=== PATIENT | male | born 1985 | race African-American/Black ===

== ENCOUNTER 2018-02-16 17:22 | Emergency (ER) | payer MEDICARE, MEDICAID ==
[~2018-02-16] VITALS: Ht 165.1 cm; Wt 95.3 kg
[~2018-02-16 17:22] MED LIST: ALBUTEROL2.5 MG/31 INH; CALCITROL; CLONIDINE; CLONIDINE HCL0.3 M2; DOXYCYCLINE 10100 M1 PO; EPOGEN; FOSRENOL500 MG; NORCO 5-325 TA1 EACH PO; NORVASC; PHOSLYRA667 MG/5 M; PREDNISONE 20 M20 M1 PO; ZESTRIL; ZPAK PO
[2018-02-16 17:48] VITALS: BP 167/110
== END 2018-02-16 17:49 | disposition home or self-care (01) ==
LOC: M.ERS 17:22
DX: Z71.1 Person with feared health complaint in whom no diagnosis is made (principal); I10 Essential (primary) hypertension

== ENCOUNTER 2018-05-29 15:36 | Inpatient (IN) | payer MEDICARE, MEDICAID ==
[2018-05-29] VITALS (20 sets, daily range): BP systolic 108–143; BP diastolic 63–97
[~2018-05-29] VITALS: Ht 172.7 cm; Wt 93.0 kg
[~2018-05-29 15:36] MED LIST changes: -CALCITROL; +CALCITROL PO
[2018-05-29 16:03] LABS: ANION GAP 20 mmol/L (7-16); BUN 122 mg/dL (7-18); CALCIUM 9.6 mg/dL (8.5-10.1); CHLORIDE 97 mmol/L (98-107); CO2 19 mmol/L (21-32); CREATININE 16.6 mg/dL (0.6-1.3); GLUCOSE 98 mg/dL (70-99); SODIUM 136 mmol/L (136-145)
[2018-05-29 16:04] LABS: APTT 32.6 Seconds (25.0-31.3); INR 1.4
[2018-05-29 16:08] LABS: POTASSIUM 9.6 mmol/L (3.5-5.1)
[2018-05-29 16:14] LABS: ABSOLUTE BASOPHILS 0.1 thou/uL (0.0-0.2); ABSOLUTE EOSINOPHILS 0.6 thou/uL (0.0-0.7); ABSOLUTE LYMPHOCYTES 2.9 thou/uL (0.8-5.3); ABSOLUTE MONOCYTES 1.1 thou/uL (0.0-1.2); ALBUMIN 2.2 g/dL (3.4-5.0); ALKALINE PHOSPHATASE 711 U/L (46-116); EOSINOPHILS 5.5 %; HEMATOCRIT 27.5 % (42.0-52.0); HEMOGLOBIN 8.4 gm/dL (14.0-18.0); LYMPHOCYTES 24.8 %; MCH 26.1 pg (26.0-34.0); MCHC 30.6 g/dL (28.0-37.0); MCV 85.3 fL (80.0-100.0); MONOCYTES 9.4 %; MPV 8.4 fl. (7.2-11.1); NT-PRO BRAIN NAT PEPTIDE > 35000 pg/mL (<300); NUCLEATED RBCS 0 /100WBC; PLATELET COUNT* 424 thou/uL (150-400); POLYS 59.3 %; RBC 3.22 mil/uL (4.50-6.00); SGOT 30 U/L (15-37); SGPT 8 U/L (30-65); TOTAL BILIRUBIN 0.7 mg/dL (<0.1-1.0); TOTAL PROTEIN 8.2 g/dL (6.4-8.2); TROPONIN-I LEVEL <0.06 ng/mL (<0.06); WBC 11.7 thou/uL (4.0-11.0)
--- NOTE | 2018-05-29 16:15 | NUR ---
CALLED PT'S BROTHER SOLE AT [phone] PER PT'S REQUEST.
[2018-05-30] VITALS (28 sets, daily range): BP systolic 88–140; BP diastolic 50–85
--- NOTE | 2018-05-30 05:28 | NUR ---
OXYCODONE PULLED FROM PYXIS BY PRECEPTOR YUNIOR HUIZAR AND ADMINISTERED BY THIS RN.
[2018-05-30 05:34] LABS: ABSOLUTE BASOPHILS 0.2 thou/uL (0.0-0.2); ABSOLUTE EOSINOPHILS 0.5 thou/uL (0.0-0.7); ABSOLUTE LYMPHOCYTES 0.8 thou/uL (0.8-5.3); ABSOLUTE MONOCYTES 0.9 thou/uL (0.0-1.2); ABSOLUTE NEUTROPHILS 5.5 thou/uL (1.6-8.1); BASOPHILS 2.3 %; EOSINOPHILS 5.9 %; HEMATOCRIT 20.4 % (42.0-52.0); LYMPHOCYTES 10.4 %; MCV 81.9 fL (80.0-100.0); MONOCYTES 11.5 %; MPV 7.8 fl. (7.2-11.1); NUCLEATED RBCS 0 /100WBC; POLYS 69.9 %; RBC 2.49 mil/uL (4.50-6.00); RDW-CV 16.4 % (10.5-14.5); WBC 7.9 thou/uL (4.0-11.0)
[2018-05-30 05:35] LABS: PLATELET COUNT* 315 thou/uL (150-400)
[2018-05-30 05:36] LABS: HEMOGLOBIN 6.7 gm/dL (14.0-18.0)
[2018-05-30 05:54] LABS: TROPONIN-I LEVEL 0.06 ng/mL (<0.06)
[2018-05-30 05:57] LABS: CALCIUM 7.6 mg/dL (8.5-10.1); CREATININE 9.7 mg/dL (0.6-1.3); POTASSIUM 5.7 mmol/L (3.5-5.1)
--- NOTE | 2018-05-30 11:22 | NUR ---
PT TRANSFERED TO ROOM 314. REPORT TO YUNIOR POON. PT TAKEN PER BED WITH ALL BELONGINGS. O2 5L NC. DAUGHTER FOLLOWED HER MOTHER UP TO THE ROOM.
--- NOTE | 2018-05-30 12:03 | NUR ---
WOUND CARE NOTE: CONSULT RECEIVED FOR GANGRENE B/L FEET. PATIENT PRESENTS WITH DRY GANGRENE TO BILATERAL FEET AT THE TOES EXTENDING TOWARDS THE FIRST METATARSAL HEADS. DRY, BLACK ESCHAR, INTACT. PAINTED WITH BETADINE. ON THE RIGHT DORSAL ASPECT OF FOOT THERE IS AN ULCERATION, PATIENT APPARENTLY HAD SCRATCHED HIMSELF PREVIOUSLY. ULCERATION WITH SMALL AREA AT THE 8 O'CLOCK AREA THAT IS MOIST, YELLOW. SURROUNDING TISSUE IS DRY, RED, BLACK. THERE IS ANOTHER ULCERATION TO THE RIGHT ABBASI THAT IS RED, DRY. RIGHT LEG IS SIGNIFICANTLY MORE EDEMATOUS THAN LEFT. VASCULAR TACK PULLER MACHINE IN DURING ASSESSMENT BILATERAL HEELS ARE BOGGY. RECOMMEND ELEVATE BLE KEEP HEELS OFF BED ENCOURAGE GOOD NUTRTION/HYDRATION BETADINE TO ESCHARS DAILY
--- NOTE | 2018-05-30 15:26 | EKG ---
[place] [address] ELECTROCARDIOGRAM REPORT Name: RUDOLPH AGUILAR JR Room: [address] ADM IN M.R.#: [id number] Admission: 05/29/18 Attend Phys: Kirill Bello MD Discharge: Date of : 81 Report #: [id number] THIS REPORT FOR: //name// [facility] ED Test Date: 2018-05-29 Test Time: 15:52:55 Pat Name: RUDOLPH AGUILAR Department: Room: [facility] Gender: M Supplier Quality: : 1985 Requested By: Arash Alejandra Order Number: [id number] MD: Joe Schroeder Measurements Intervals [place] Rate: 77 P: [place]: QRS: 129 QRSD: 161 T: -18 QT: 442 QTc: 501 Interpretive Statements Accelerated junctional rhythm Nonspecific intraventricular conduction delay Compared to ECG 03/06/2008 23:44:34 Accelerated junctional rhythm now present Intraventricular conduction delay improved Electronically Signed On 05-30-2018 15:26:26 AMMUNITION SUPERVISOR by Joe Schroeder [email or web address] <ELECTRONICALLY SIGNED> By: Joe Schroeder MD, FACC 05/30/18 1526 1552 1552 Joe Schroeder MD, [facility] /EPI
--- NOTE | 2018-05-30 15:26 | EKG ---
[place] [address] ELECTROCARDIOGRAM REPORT Name: RUDOLPH AGUILAR JR Room: [address] ADM IN .R.#: [id number] Admission: 05/29/18 Attend Phys: Kirill Bello MD Discharge: Date of : 81 Report #: [id number] THIS REPORT FOR: //name// [facility] ED Test Date: 2018-05-29 Test Time: 15:41:22 Pat Name: RUDOLPH AGUILAR Department: Room: [facility] Gender: M Sales Strategy Manager: : 1985 Requested By: Arash Alejandra Order Number: [id number] MD: Joe Schroeder Measurements Intervals [place] Rate: 108 P: 0 WI: 168 QRS: 86 QRSD: 256 T: 181 QT: 503 QTc: 675 Interpretive Statements Sinus tachycardia Intraventricular conduction delay, suspect hyperkalemia Compared to ECG 03/06/2008 23:44:34 conduction delay noted Electronically Signed On 05-30-2018 15:25:56 FIGURE MODEL by Joe Schroeder [email or web address] <ELECTRONICALLY SIGNED> By: Joe Schroeder MD, FACC 05/30/18 1525 1541 1541 Joe Schroeder MD, FAC /EPI
--- NOTE | 2018-05-30 17:15 | NUR ---
PT CARE ASSUMED AFTER REPORT. ASSESSMENTS COMPLETE. DIALYSIS THIS AM. 4L REMOVED. 1U PRBC GIVEN DURING DIALYSIS. RIJ REDRESSED AFTER LEAKING OVERNIGHT. PT TO BE NPO AFTER MIDNIGHT FOR ABD US TOMARROW. PRN PAIN MEDICATION GIVEN PER PT REQUEST. FALL PRECAUTIONS IN PLACE. PROGRESSING TOWARDS GOALS.
--- NOTE | 2018-05-30 23:12 | NUR ---
INITAL ASSESSMENT COMPLETED AT 194. PT REPORTED UNRELIEVED PAIN TO FEET. DR LITTLEJOHN NOTIFIED, ORDERS RECIEVED. AT 0 PT'S RIGHT ABBASI BLEEDING. PT REPORTED PICKING AT IT EARLIER. AREA COVERED WITH KELLY AND WRAPPED WITH CURLEX. PT INSTRUCTED TO ELEVATE RIGHT LEG ON. PILLOW.
[2018-05-31] VITALS (24 sets, daily range): BP systolic 91–130; BP diastolic 29–93
[2018-05-31 06:39] LABS: HEMATOCRIT 21.3 % (42.0-52.0); MCH 27.6 pg (26.0-34.0); MCHC 32.9 g/dL (28.0-37.0); MCV 83.7 fL (80.0-100.0); MPV 7.7 fl. (7.2-11.1); NUCLEATED RBCS 0 /100WBC; PLATELET COUNT* 346 thou/uL (150-400); RBC 2.55 mil/uL (4.50-6.00); RDW-CV 16.6 % (10.5-14.5); WBC 9.5 thou/uL (4.0-11.0)
[2018-05-31 06:44] LABS: CALCIUM 8.1 mg/dL (8.5-10.1); POTASSIUM 5.4 mmol/L (3.5-5.1)
[2018-05-31 06:47] LABS: CREATININE 7.5 mg/dL (0.6-1.3)
[2018-05-31 07:33] LABS: ABSOLUTE BASOPHILS 0.1 thou/uL (0.0-0.2); ABSOLUTE EOSINOPHILS 0.5 thou/uL (0.0-0.7); ABSOLUTE LYMPHOCYTES 1.8 thou/uL (0.8-5.3); ABSOLUTE MONOCYTES 0.1 thou/uL (0.0-1.2); METAMYELOCYTES 1 %; PLATELET ESTIMATE ADEQUATE
--- NOTE | 2018-05-31 12:30 | CON ---
[address] [address] CONSULTATION Name: RUDOLPH AGUILAR JR Room: [address] IN M.R.#: [id number] Admission: 05/29/18 Attend Phys: Kirill Bello MD Discharge: Date of : 81 Report #: [id number] THIS REPORT FOR: //name// CC: Kirill Bello [facility] physician/PCP DATE OF SERVICE: 05/30/2018 ATTENDING PHYSICIAN: Kirill Bello MD. REASON FOR EVALUATION: Sepsis, pneumonitis. HISTORY OF PRESENT ILLNESS: Chart reviewed, patient examined. This is a 32-year-old with history of hypertension, has been complicated by severe vasculopathy including end-stage renal disease, on dialysis, who was scheduled to undergo dialysis therapy yesterday; however, became very weak, reports of some nausea with emesis, although he denied that. He has ongoing issues with lower extremity severe vasculopathy, has had a previous procedure involving the right lower extremity. He was scheduled to have one on the left as well due to multiple sites of arterial stenosis. He failed to show for that. It is not clear if he had any fevers or chills. He states his appetite has been okay. No pulmonary-related complaints. He has got severe chronic type wounds involving the bilateral lower extremities, in particular the distal aspects of toes and the dorsal aspect of the right foot, which show evidence of dry gangrene. Evaluation of chest x-ray initially showed some pleural thickening, effusion and infiltrate with cardiomegaly on the right. Lactic acid was 5.1 initially, repeat was 1.5. He was started empirically on broad-spectrum antimicrobials including piperacillin/tazobactam and vancomycin. He is lethargic and perhaps mildly encephalopathic at this point. ALLERGIES: None known. MEDICATIONS: Include vancomycin, pantoprazole, oxycodone, Zosyn, clonidine, p.r.n. hydralazine, ondansetron, docusate sodium, acetaminophen. PAST MEDICAL HISTORY: History of hypertension; chronic renal failure, now with end-stage renal disease, hemodialysis via the left arm AV fistula. SOCIAL HISTORY: Smokes cigarettes. No illicit drug use. No ethanol. FAMILY HISTORY: Noncontributory. REVIEW OF SYSTEMS: Somewhat limited due to his lethargy and encephalopathy, otherwise unremarkable 10-point review of systems with the exception [place] [address] CONSULTATION Name: JEFFRUDOLPH Seema EMRRILL Room: [address]#: [id number] Admission: 05/29/18 Attend Phys: Kirill Bello MD Discharge: Date of : 81 Report #: [id number] PHYSICAL EXAMINATION: GENERAL: He appears chronically ill. He is in qoxt-ba-hnnimmeh distress. He is quite lethargic, does arouse to some extent and appears undernourished. VITAL SIGNS: Temperature overnight 96.2, pulse 80, respirations 13, blood pressure is 129/74. SKIN: Warm, dry, no rashes. HEENT: Neck is supple. Oropharynx is without lesion. LUNGS: Diminished breath sounds, in particular some coarse sounds on the right. HEART: Regular, does have a soft systolic murmur. ABDOMEN: Soft, mildly distended, nontender. There are no peritoneal signs. GENITOURINARY: Deferred. RECTAL: Deferred. LABORATORY DATA: Blood cultures sterile thus far. Electrolytes from this morning, sodium 137. Potassium 5.7, is down from 9.6. Chloride 98, bicarbonate is 25, anion gap of 14. BUN and creatinine 65 and 9.7, latter being the creatinine, which is down from 16.6. Glucose of 81, estimated GFR of 8. Prealbumin of 11.5. CBC: White count 7.9, H and H 6.7 and 20.4, platelets of 315. Differential otherwise unremarkable. Lactic acid serially was 5.1 and 1.5. Chest x-ray as described above. Liver functions otherwise unremarkable. Albumin of 2.2, total protein 8.2, alkaline phosphatase elevated at 711, although transaminases were normal. ASSESSMENT: Sepsis, pneumonia, has got significant disease burden at this point. He has a known history of severe noncompliance as well. We will continue empiric antimicrobial therapy, await culture results . We will go ahead and check an abdominal ultrasound to exclude an occult process. Vascular Surgery was consulted and did discuss with the nurse practitioner. They planned on doing additional diagnostic studies and perhaps intervention, particularly on the left lower extremity. She notes the wounds are marginally the same or perhaps a little worse. Certainly it is not clear there is significant reversibility to all of the tissue at this point given the overall appearance of dry gangrene, monitor expectantly. Encouraged deep breathing. We will add incentive spirometry, expectantly monitor. <ELECTRONICALLY SIGNED> By: Shankar Gonzalez MD 05/31/18 1230 1314 [id number] Gonzalez MD /nt
--- NOTE | 2018-05-31 17:59 | NUR ---
patient transfered to 222 report given to camacho.
--- NOTE | 2018-05-31 18:22 | NUR ---
ICU TRANSFER TO 226 PATIENT TO VIA WC ORIENTED TO AND CALL LIGHT DENIES PAIN
[2018-06-01] VITALS (8 sets, daily range): BP systolic 106–159; BP diastolic 51–122
[2018-06-01 04:51] LABS: ABSOLUTE BASOPHILS 0.1 thou/uL (0.0-0.2); ABSOLUTE EOSINOPHILS 0.4 thou/uL (0.0-0.7); ABSOLUTE LYMPHOCYTES 1.3 thou/uL (0.8-5.3); ABSOLUTE MONOCYTES 1.8 thou/uL (0.0-1.2); ABSOLUTE NEUTROPHILS 6.5 thou/uL (1.6-8.1); BASOPHILS 1.4 %; EOSINOPHILS 3.5 %; HEMATOCRIT 21.2 % (42.0-52.0); LYMPHOCYTES 13.1 %; MCHC 31.8 g/dL (28.0-37.0); MONOCYTES 17.6 %; MPV 7.5 fl. (7.2-11.1); NUCLEATED RBCS 0 /100WBC; PLATELET COUNT* 313 thou/uL (150-400); POLYS 64.4 %; RBC 2.49 mil/uL (4.50-6.00); RDW-CV 16.8 % (10.5-14.5); WBC 10.2 thou/uL (4.0-11.0)
[2018-06-01 05:04] LABS: CALCIUM 8.2 mg/dL (8.5-10.1)
[2018-06-01 05:08] LABS: HEMOGLOBIN 6.7 gm/dL (14.0-18.0)
[2018-06-01 05:10] LABS: CREATININE 5.4 mg/dL (0.6-1.3); POTASSIUM 4.2 mmol/L (3.5-5.1)
--- NOTE | 2018-06-01 05:36 | NUR ---
ASSUMED CARE OF PT AFTER REPORT AT 1930. PT A&OX4. VSS. PHYSICAL ASSESSMENT COMPLETED AND CHARTED. PT ON RA WITH 100% O2 SAT. PT TRACING ST ON TELE. PT UPSTANDBY TO BEDSIDE COMMODE. PT WITH RIGHT IJ TRIPLE LUMEN PATENT AND INTACT. INSTRUCTED PT ON NPO- FOR ABDOMNIAL US TODAY. COMMUNICATES UNDERSTANDING. PT COMPLAINED OF FEET PAIN-PAIN MEDS GIVEN PER MAR WITH PARTIAL RELIEF. CALL LIGHT WITHIN REACH.
--- NOTE | 2018-06-01 07:15 | NUR ---
CHANGE OF SHIFT BEDSIDE REPORT GIVEN PATIENT SEEN AT BEDSIDE, IN CHAIR ASSUMED PATIENT
--- NOTE | 2018-06-01 08:30 | NUR ---
DR NOTIFIED OF SEPSIS PROTOCAL POSITIVE NOT ORDERS GIVEN, DUE TO ESRD
--- NOTE | 2018-06-01 12:06 | NUR ---
Pt is A&O. Resides at home with his uncle. Pt states that he is normally independent, Pt uses a walker for mobility. No hx of HH or SNF. Pt is current with [facility] p:[phone] f:[phone], CM faxed updated clinical info. Pt is on a MWF schedule, chair time is 1045-345. CM spoke with staff at [facility] and will fax flowsheets at ne. Pt's goal is to return home at ne. Following.
[2018-06-01 15:44] LABS: HEMATOCRIT 23.9 % (42.0-52.0); HEMOGLOBIN 7.9 gm/dL (14.0-18.0)
[2018-06-02] VITALS: BP 133/85
[2018-06-02 04:00] VITALS: BP 128/62
--- NOTE | 2018-06-02 04:35 | NUR ---
ASSUMED CARE OF PT AFTER REPORT AT 1930. PT A&OX4. VSS. PHYSICAL ASSESSMENT COMPLETED AND CHARTED. PT ON RA WITH 93% O2 SAT. PT TRACING SR/ST ON TELE. PT UP STANBY TO BEDSIDE COMMODE. PT STAYED ON THE RECLINER ALL NIGHT. PT COMPLAINED GENERALIZED BODY PAIN WITH PAIN SCALE OF 10/10-PAIN MEDS GIVEN PER MAR WITH PARTIAL RELIEF. MAINTAINED ON FLUID RESTRICTION. COMMUNICATES UNDERSTANDING. CALL LIGHT WITHIN REACH.
[2018-06-02 05:06] LABS: ABSOLUTE BASOPHILS 0.1 thou/uL (0.0-0.2); ABSOLUTE EOSINOPHILS 0.8 thou/uL (0.0-0.7); ABSOLUTE LYMPHOCYTES 1.3 thou/uL (0.8-5.3); ABSOLUTE MONOCYTES 1.3 thou/uL (0.0-1.2); ABSOLUTE NEUTROPHILS 6.6 thou/uL (1.6-8.1); BASOPHILS 1.2 %; EOSINOPHILS 7.5 %; HEMATOCRIT 23.5 % (42.0-52.0); HEMOGLOBIN 7.6 gm/dL (14.0-18.0); LYMPHOCYTES 12.9 %; MCH 27.2 pg (26.0-34.0); MCHC 32.5 g/dL (28.0-37.0); MCV 83.9 fL (80.0-100.0); MONOCYTES 12.8 %; MPV 7.8 fl. (7.2-11.1); NUCLEATED RBCS 0 /100WBC; PLATELET COUNT* 289 thou/uL (150-400); POLYS 65.6 %; RDW-CV 16.6 % (10.5-14.5); WBC 10.1 thou/uL (4.0-11.0)
[2018-06-02 05:30] LABS: CALCIUM 8.8 mg/dL (8.5-10.1); CREATININE 7.3 mg/dL (0.6-1.3); POTASSIUM 4.9 mmol/L (3.5-5.1); TOTAL PROTEIN 7.7 g/dL (6.4-8.2)
[2018-06-02 08:00] VITALS: BP 153/69
--- NOTE | 2018-06-02 10:11 | NUR ---
ASSUMED CARE OF PT AT 0730. PT RESTING IN RECLINER WAITING FOR BREAKFAST. PT A&0X4, COMPLAINS OF PAIN- GENERALIZED AND TO BILATERAL FEET. TREATED BY NOC SHIFT WITH MINIMAL RELIEF. PT TO HAVE DIALYSIS TODAY. PT TRACING ST ON THE DENTAL SECRETARY. ON RA SAT UPPER 90'S. DENIES ANY SHORTNESS OF BREATH. PT UP SBA TO BATHROOM. PT ON 1500 ML FLUID RESTRICTION. PT GOAL FOR TODAY IS TO INCREASE ACTIVITY, DIALYSIS, MONITOR LABS AND WOUND CARE. AM ASSESSMENT CHARTED. MEDICATIONS PER SEP. PT REPOSITIONS SELF. HOURLY ROUNDING OBSERVED. BED IN LOW POSITION. FALL PRECAUTIONS IN PLACE. CALL LIGHT WITHIN REACH. WILL CONTINUE PLAN OF CARE.
[2018-06-02 19:30] VITALS: BP 127/79
[2018-06-03] VITALS: BP 107/64
--- NOTE | 2018-06-03 03:41 | NUR ---
RECIEVED REPORT AND ASSUMED CARE AT 1900. PULSE TACHY, OTHER THAN THAT VITAL SIGNS STABLE. PT UP WITH STANDBY ASSIST. ON RA. ASSESSMENT COMPLETED AND DISCUSSED PLAN OF CARE AND PT UNDERSTANDS. PT HAS PAIN IN LOWER EXTREMITIES DUE TO WOUNDS AND PRN PAIN MEDS GIVEN ORDERED. BED LOCKED, AND CALL LIGHT WITHIN REACH. HOURLY ROUNDING DONE AND ALL NEEDS MET. NURSING WILL CONTINUE TO MONITOR.
[2018-06-03 04:00] VITALS: BP 108/60
[2018-06-03 06:21] LABS: ABSOLUTE BASOPHILS 0.1 thou/uL (0.0-0.2); ABSOLUTE EOSINOPHILS 0.8 thou/uL (0.0-0.7); ABSOLUTE LYMPHOCYTES 1.1 thou/uL (0.8-5.3); ABSOLUTE MONOCYTES 1.3 thou/uL (0.0-1.2); ABSOLUTE NEUTROPHILS 5.7 thou/uL (1.6-8.1); BASOPHILS 1.4 %; EOSINOPHILS 8.5 %; HEMATOCRIT 22.1 % (42.0-52.0); HEMOGLOBIN 7.3 gm/dL (14.0-18.0); LYMPHOCYTES 11.7 %; MCH 27.6 pg (26.0-34.0); MCHC 32.8 g/dL (28.0-37.0); MCV 84.1 fL (80.0-100.0); MONOCYTES 14.6 %; MPV 7.9 fl. (7.2-11.1); NUCLEATED RBCS 0 /100WBC; PLATELET COUNT* 244 thou/uL (150-400); POLYS 63.8 %; RBC 2.63 mil/uL (4.50-6.00); RDW-CV 17.1 % (10.5-14.5)
[2018-06-03 06:33] LABS: CALCIUM 8.9 mg/dL (8.5-10.1); POTASSIUM 4.3 mmol/L (3.5-5.1)
[2018-06-03 08:00] VITALS: BP 102/60
--- NOTE | 2018-06-03 08:30 | NUR ---
pt sitting up in chair in room , appears alery o x 4, denies chest pain, SOB, does C/O BLE pain, has open wounds , pt had removed dressings, was picking at wounds, some bleeding, BLE edema, R 3 plus, l 1 plus, is diaylsis pt, m/w/f, RTC, L AV fistula. physician here rounding
[2018-06-03 12:00] VITALS: BP 118/65
[2018-06-03 16:15] VITALS: BP 120/76
--- NOTE | 2018-06-03 17:42 | NUR ---
pt resting in chair, remains alert o x 4, denies chest pain, SOB, does C/O BLE/feet pain. States adeq pain control with po pain meds, States as long as feet in dependent position, pain is tolerable. states if elevated BLE or rests in bed, pain becomes intense. Pt refused heparin sq. provided education for need of RX. Vet cont to decline, states sq shot hurt, does not want to take. BLE edmatous with opens vascular wouns, Toes on both feet are black and necrtotic. betadine /ABX oint applied as orderd, plan on vascular surgery tentatatively on Tuesday06-06-18, Is dialysis pt m/w/f, surgery scheduled for non-dialysis day for LLE woubwi av aeES IF ELEVATED OR RESTS IN BED, PAIN MUCH WORSEsaistaopo y
[2018-06-03 19:30] VITALS: BP 136/88
[2018-06-04] VITALS: BP 137/71
--- NOTE | 2018-06-04 02:27 | NUR ---
RECIEVED REPORT AND ASSUMED CARE AT 1900. VITAL SIGNS STABLE. PT UP ADLIB. ASSESSMENT COMPLETED AND DISCUSSED PLAN OF CARE ADN PT UNDERSTANDS. PAIN IN LOWER EXTREMITIES DUE TO WOUNDS, PRN PAIN MEDS GIVEN ORDERED. PT ON RA. BED LOCKED, AND CALL LIGHT WITHIN REACH. HOURLY ROUNDING DONE AND ALL NEEDS MET. NURSING WILL CONTINUE TO MONITOR.
[2018-06-04 04:00] VITALS: BP 137/78
[2018-06-04 12:00] VITALS: BP 105/66
[2018-06-04 14:00] LABS: ABSOLUTE BASOPHILS 0.1 thou/uL (0.0-0.2); ABSOLUTE EOSINOPHILS 0.8 thou/uL (0.0-0.7); ABSOLUTE LYMPHOCYTES 1.2 thou/uL (0.8-5.3); ABSOLUTE MONOCYTES 1.4 thou/uL (0.0-1.2); ABSOLUTE NEUTROPHILS 5.3 thou/uL (1.6-8.1); BASOPHILS 1.1 %; HEMATOCRIT 23.5 % (42.0-52.0); HEMOGLOBIN 7.7 gm/dL (14.0-18.0); LYMPHOCYTES 13.3 %; MCH 27.6 pg (26.0-34.0); MCHC 32.7 g/dL (28.0-37.0); MCV 84.4 fL (80.0-100.0); MONOCYTES 16.4 %; MPV 7.7 fl. (7.2-11.1); NUCLEATED RBCS 0 /100WBC; PLATELET COUNT* 226 thou/uL (150-400); POLYS 60.2 %; RBC 2.78 mil/uL (4.50-6.00); RDW-CV 16.6 % (10.5-14.5); WBC 8.8 thou/uL (4.0-11.0)
[2018-06-04 14:11] LABS: ALBUMIN 1.9 g/dL (3.4-5.0); CALCIUM 8.9 mg/dL (8.5-10.1); POTASSIUM 4.8 mmol/L (3.5-5.1); TOTAL PROTEIN 7.7 g/dL (6.4-8.2)
[2018-06-04 14:13] LABS: CREATININE 8.5 mg/dL (0.6-1.3)
--- NOTE | 2018-06-04 15:40 | EKG ---
[place] [address] ELECTROCARDIOGRAM REPORT Name: RUDOLPH AGUILAR JR Room: [address] ADM IN M.R.#: [id number] Admission: 05/29/18 Attend Phys: Kirill Bello MD Discharge: Date of : 81 Report #: [id number] THIS REPORT FOR: //name// [facility] Test Date: 2018-06-03 Test Time: 21:51:07 Pat Name: RUDOLPH AGUILAR Department: Room: [address] Gender: M Track Laborer: DEVORA : 1985 Requested By: Kirill Bello Order Number: [id number] MD: Joe Schroeder Measurements Intervals [place] Rate: 99 P: 89 [place]: 135 QRS: 13 QRSD: 100 T: 27 QT: 389 QTc: 500 Interpretive Statements Accelerated junctional rhythm Delayed R-wave progression, consider anterior infarct Prolonged QT interval Compared to ECG 05/29/2018 15:52:55 Possible myocardial infarct finding now present Prolonged QT interval now present Intraventricular conduction delay no longer present Electronically Signed On 06-04-2018 15:40:12 ENVIRONMENTAL INTERN by Joe Schroeder [email or web address] <ELECTRONICALLY SIGNED> By: Joe Schroeder MD, FACC 06/04/18 1540 215 [id number] Joe Schroeder MD, FAC /EPI
[2018-06-04 16:00] VITALS: BP 140/80
--- NOTE | 2018-06-04 18:47 | NUR ---
PATINET RESTING IN CHAIR IN ROOM. HOURLY ROUNDING COMPLETED FOR PATINET SAFETY. LOWER EXTREMITY WOUNDS DOCUMENTED AND PATINET GIVEN FREQUENT EDUCATION REGARDING PROPER WOUND CARE AND NEED FOR OFFLOAADING BOOTS AND THE NEED TO CARE FOR WOUNDS. PATINET DOES NOT KEEP LEGS ELEVATED AND SPENDS MOT OF THE TIME IN THE CHAIR WITH FEET ON FLOOR. VITAL SIGNS STABLE AND PATIENT IN NOAPPARENT SIGNS OF DISTRESS.
[2018-06-04 20:00] VITALS: BP 144/89
--- NOTE | 2018-06-04 23:54 | NUR ---
RECIEVED A PHONE CALL FROM PATIENTS COUSIN AT THIS TIME. HE DID NOT WANT TO STATE HIS NAME. HE STATED THAT HE WANTED TO INFORM US THAT HE BELIVES THAT THE PATIENT HAS BEEN ATTEMPTING TO CREATE THE CROCODILE DRUG AT HOME, THAT HE LIKES THE SMELL OF IT ALL, AND THAT HE GOOGLED THE EFFECTS OF THE CROCODILE DRUG AND IT SHOWED HIM PICTURES OF WHAT THE PATIENTS FEET LOOK LIKE. PATIENTS COUSIN STATED THAT HE BELIEVES HIS FEET ARE LIKE THIS BECAUSE OF THIS REASON. RN NOTIFIED.
[2018-06-05 00:08] VITALS: BP 148/98
--- NOTE | 2018-06-05 03:51 | NUR ---
PT ALERT ORIENTED. PT WITH COMPLAINTS OF NOT RECIEVING PAIN MEDICATION ON DAY SHIFT. PAIN MEDICATION ORDERED Q 6 HRS AND GIVEN TWICE. AURELIO FEET CLEANSED WITH WOUND SPRAY AND BETADINE COVERED WITH MUPIROCIN OINTMENT. KERLEX WRAPPED PER PT REQUEST. PT REQUESTED KERLEX OFF ONE HOUR LATER. TELEMETRY SHOWS ST. L AV FISTULA +THRILL + BRUIT. WILL CONTINUE TO MONITOR.
[2018-06-05 04:00] VITALS: BP 145/76
[2018-06-05 04:39] LABS: ABSOLUTE BASOPHILS 0.1 thou/uL (0.0-0.2); ABSOLUTE EOSINOPHILS 0.8 thou/uL (0.0-0.7); ABSOLUTE LYMPHOCYTES 1.1 thou/uL (0.8-5.3); ABSOLUTE MONOCYTES 1.3 thou/uL (0.0-1.2); ABSOLUTE NEUTROPHILS 5.3 thou/uL (1.6-8.1); BASOPHILS 1.7 %; EOSINOPHILS 8.9 %; HEMATOCRIT 23.2 % (42.0-52.0); HEMOGLOBIN 7.5 gm/dL (14.0-18.0); MCH 27.2 pg (26.0-34.0); MCHC 32.3 g/dL (28.0-37.0); MCV 84.2 fL (80.0-100.0); MONOCYTES 15.3 %; MPV 8.3 fl. (7.2-11.1); NUCLEATED RBCS 0 /100WBC; PLATELET COUNT* 237 thou/uL (150-400); POLYS 61.1 %; RBC 2.75 mil/uL (4.50-6.00); RDW-CV 17.1 % (10.5-14.5); WBC 8.6 thou/uL (4.0-11.0)
[2018-06-05 04:59] LABS: ALBUMIN 1.9 g/dL (3.4-5.0); CALCIUM 8.9 mg/dL (8.5-10.1); CREATININE 9.4 mg/dL (0.6-1.3); POTASSIUM 5.2 mmol/L (3.5-5.1); TOTAL PROTEIN 7.6 g/dL (6.4-8.2)
[2018-06-05 05:13] LABS: PREALBUMIN 10.6 mg/dL (18.0-35.7)
[2018-06-05 07:20] VITALS: BP 149/59
--- NOTE | 2018-06-05 09:59 | NUR ---
Anticipate surgery this week for foot amputation. Pt will need therapy notes post surgery, Pt may need skilled v rehab. CM following for disposition.
--- NOTE | 2018-06-05 10:19 | NUR ---
WOUND CARE NOTE: REASSESSMENT OF BILATERAL FOOT/TOE NECROSIS. WOUNDS TO PATIENT'S FEET/TOES ARE WORSE. CONTINUE TO HAVE BLACK NECROTIC AREAS TO 1-5TH TOES BILATERALLY WHICH EXTENDS TO THE METATARSAL HEADS PLANTAR AND DORSAL ASPECTS. HOWEVER, THEY ARE BEGINNING TO BECOME WET AND DRAIN SEROSANGUINEOUS DRAINAGE FROM SEVERAL PLACES. BILATERAL LEGS WITH 3-4+ EDEMA. BOTTOM OF PATIENT'S RIGHT FOOT IS FLUCTUANT AND DISCOLORED, WHICH IS A NEW FINDING FROM LAST ASSESSMENT. PATIENT WAS SEEN WITH VASCULAR LEAD RADIOLOGIC TECHNOLOGIST. PAINTED ALL AREAS WITH BETADINE IN HOPES TO DRY AREAS OUT AGAIN. EDUCATED PATIENT ON IMPORTANCE OF KEEPING LEGS ELEVATED TO ASSIST WITH KEEPING FLUID OFF LEGS. PATIENT STATED HE WOULD TRY, BUT IS IN PAIN RIGHT NOW. RECOMMEND KEEP BILATERAL LEGS ELEVATED CONTINUE WITH PAINTING ESCHARS/OPEN WOUNDS TO FEET AND TOES WITH BETADINE TIGHT BLOOD GLUCOSE CONTROL ENCOURAGE GOOD NUTRITION/HYDRATION
--- NOTE | 2018-06-05 15:45 | CON ---
[address] [address] CONSULTATION Name: RUDOLPH AGUILAR JR Room: [address] IN .R.#: [id number] Admission: 05/29/18 Attend Phys: Kirill Bello MD Discharge: Date of : 81 Report #: [id number] THIS REPORT FOR: //name// CC: Kirill Bello FAM physician/PCP DATE OF SERVICE: 05/30/2018 CONSULTING PHYSICIAN: Kirill Bello MD. REASON FOR CONSULT: End-stage kidney disease. HISTORY OF PRESENT ILLNESS: A 32-year-old gentleman with a history of end-stage kidney disease, admitted with severe hyperkalemia, potassium at 9.6 along with severe bradycardia and respiratory distress. He has a history of noncompliance with his dialysis and had missed several sessions of dialysis since recently being discharged from [facility]. He normally dialyzes at [facility] on Tuesday, Tuesday and Tuesday. He underwent dialysis emergently yesterday, had dialysis again today. Currently, has no complaints. REVIEW OF SYSTEMS: Constitutional, psych, heme, eyes, ENT, respiratory, cardiac, GI, , endocrine, all negative except as documented above. PAST MEDICAL HISTORY: End-stage kidney disease, hypertension, severe peripheral vascular disease with history of right femoral endarterectomy, history of coronary artery disease, history of hypertension, history of right hemithorax. CURRENT MEDICATIONS: Reviewed. SOCIAL HISTORY: No longer smoking. FAMILY HISTORY: Not pertinent in this 32-year-old gentleman. PHYSICAL EXAMINATION: VITAL SIGNS: Blood pressure 129/74, pulse 78, respirations 14, afebrile with a temperature 35.7. GENERAL: No acute distress. EYES: Extraocular movements intact. EARS: Externally normal. CARDIOVASCULAR: Regular rate. LUNGS: No crackles. ABDOMEN: Soft. MUSCULOSKELETAL: Nontender. PSYCHIATRIC: Awake, alert. LABORATORY DATA: White cell count 7.9, hemoglobin 6.7, platelets [place] [address] CONSULTATION Name: RUDOLPH AGUILAR JR Room: [address]#: [id number] Admission: 05/29/18 Attend Phys: Kirill Bello MD Discharge: Date of : 81 Report #: [id number] 137, potassium 5.7, chloride 98, bicarbonate 25, BUN 55, creatinine 9.7, glucose 81, calcium 7.6. ASSESSMENT: 1. End-stage kidney disease, hemodialysis Tuesday, Tuesday and Tuesday at the [facility]. 2. Severe hyperkalemia on admission secondary to missed dialysis. 3. Anemia. 4. History of coronary artery disease. 5. History of hypertension. PLAN: The patient underwent dialysis again today, tolerated that treatment well on a low potassium dialysate. We will plan dialysis again tomorrow to get him back on his normal schedule. He is on a renal diet. We will continue maintenance dialysis Tuesday, Tuesday and Tuesday. Emphasized him the importance of compliance with the dialysis treatments. Lab will be checked again in a.m. Defer management of anemia to Internal Medicine. He is not having any obvious bleeding at this time. Thank you for requesting my opinion in the care and management of this patient. <ELECTRONICALLY SIGNED> By: Suleman Augustin MD 06/05/18 1545 1345 2014Aroldan Augustin MD /nt
[2018-06-05 17:10] VITALS: BP 119/70
[2018-06-05 20:00] VITALS: BP 91/48
[2018-06-06 00:01] VITALS: BP 94/44
--- NOTE | 2018-06-06 02:13 | NUR ---
ASSUMED CARE OF PATIENT AT 1900. VSS, C/O CHRONIC PAIN IN LOWER EXTREMETIES. PRN MEDS GIVEN. PATIENT REFUSES TO ELEVATE LOWER LEGS, STATES IT HURTS MORE. SLEEPS IN CHAIR. NEW BLANKETS GIVEN, PATIENT CONSTANTLY SCRATCHING AND PICKING AT WOUNDS, DOES NOT SEEM TO KNOW HE IS DOING IT. NPO AT MIDNIGHT. FREQUENTLY REQUESTING ICE CHIPS, EDUCATED ABOUT FLUID RESTRICTION. WILL CONTINUE TO MONITOR.
[2018-06-06 04:00] VITALS: BP 122/73
[2018-06-06 05:00] LABS: ABSOLUTE BASOPHILS 0.1 thou/uL (0.0-0.2); ABSOLUTE EOSINOPHILS 0.8 thou/uL (0.0-0.7); ABSOLUTE LYMPHOCYTES 1.1 thou/uL (0.8-5.3); ABSOLUTE NEUTROPHILS 6.2 thou/uL (1.6-8.1); BASOPHILS 1.1 %; HEMATOCRIT 23.9 % (42.0-52.0); HEMOGLOBIN 7.9 gm/dL (14.0-18.0); LYMPHOCYTES 11.1 %; MCH 27.5 pg (26.0-34.0); MCHC 32.8 g/dL (28.0-37.0); MCV 83.9 fL (80.0-100.0); MONOCYTES 19.5 %; MPV 8.6 fl. (7.2-11.1); NUCLEATED RBCS 0 /100WBC; PLATELET COUNT* 251 thou/uL (150-400); POLYS 60.3 %; RBC 2.85 mil/uL (4.50-6.00); RDW-CV 16.8 % (10.5-14.5); WBC 10.2 thou/uL (4.0-11.0)
[2018-06-06 05:14] LABS: ALBUMIN 1.9 g/dL (3.4-5.0); CALCIUM 8.8 mg/dL (8.5-10.1); POTASSIUM 4.2 mmol/L (3.5-5.1); TOTAL BILIRUBIN 1.2 mg/dL (<0.1-1.0); TOTAL PROTEIN 7.5 g/dL (6.4-8.2)
[2018-06-06 05:20] LABS: CREATININE 6.9 mg/dL (0.6-1.3)
--- NOTE | 2018-06-06 10:45 | NUR ---
Spoke with Dr, plan [facility] at dc, if Pt qualifies, if Pt does not qualify, then plan skilled. Spoke with Pt, Pt is in agreement with LTAC at dc. Faxed referral to [facility], await decision to accept. Pt may be ready to dc as early as tomorrow to LTAC.
[2018-06-06 11:33] VITALS: BP 108/64
[2018-06-06 12:04] LABS: APTT 34.5 Seconds (25.0-31.3); INR 1.3; PROTIME 13.5 Seconds (9.20-11.50)
--- NOTE | 2018-06-06 15:44 | OP ---
[facility] [place] [place] [address] OPERATIVE REPORT Name: RUDOLPH AGUILAR JR Room: [address] IN .R.#: [id number] Admission: 05/29/18 Attend Phys: Kirill Bello MD Discharge: Date of : 81 Report #: [id number] THIS REPORT FOR: //name// CC: Kirill Bello [facility] physician/PCP DATE OF SERVICE: 06/06/2018 PREOPERATIVE DIAGNOSIS: Critical bilateral lower extremity ischemia. POSTOPERATIVE DIAGNOSIS: Critical bilateral lower extremity ischemia. OPERATION: 1. Ultrasound-guided access to the right common femoral artery access. Aorta iliofemoral angiogram. 2. Third order selective left lower extremity angiogram. 3. Left anterior tibial artery angioplasty. SURGEON: Corbin Brewer DO. BODILY INJURY ADJUSTER: JEAN Gregory. ANESTHESIA: Sedation local. ESTIMATED BLOOD LOSS: 25 mL. FLUIDS: Less than 100 crystalloid. URINE OUTPUT: None. SPECIMENS: None. IMPLANTS: None. COMPLICATIONS: None. FINDINGS: 1. Ultrasound demonstrated patent right femoral endarterectomy site suitable for access. Initial aortogram demonstrated patent infrarenal aorta, bilateral common internal and external iliac arteries without significant stenosis. 2. Patent left common femoral and deep femoral artery with some mild to moderate atherosclerotic disease. 3. Patent left superficial femoral artery and popliteal artery with moderate diffuse disease throughout. 4. Anterior tibial artery with moderately severe diffuse stenosis throughout its course. His posterior tibial artery had a diffuse severe stenosis [facility] [address] OPERATIVE REPORT Name: RUDOLPH AGUILAR JR Room: [address] IN M.R.#: [id number] Admission: 05/29/18 Attend Phys: Kirill Bello MD Discharge: Date of : 81 Report #: [id number] throughout and ultimately occluded the mid calf. His peroneal artery had a diffuse moderately severe to severe stenoses throughout as well. Following angioplasty of the anterior tibial artery, had improved inline flow through the anterior tibial. It was a limited exam secondary to the patient's noncompliance, difficulty keeping still despite restraints and medication. CLINICAL HISTORY: The patient is a 32-year-old man with critical bilateral lower extremity ischemia. He recently underwent a right lower extremity revascularization, but his right foot continues to deteriorate. His left foot has gangrenous changes as well and recommended a left lower extremity angiogram, attempted limb salvage. However, the patient is noted to have abused different drugs including drug combination of krokodil that can cause significant ischemic changes. DETAILS OF PROCEDURE: After informed consent was obtained, the patient was taken to the angio suite, placed on the angio bed in supine position. The bilateral groins were prepped and draped in usual sterile fashion. He was administered sedation by the nurse at my discretion. Using ultrasound guidance, the right common femoral artery was identified. Skin and subcutaneous tissues were anesthetized with lidocaine anesthetic. It was accessed with a micropuncture needle. These images were preserved. Using Seldinger technique, a microwire and microsheath were placed, ultimately upsized to a 6-Singaporean sheath over a Bentson wire. I then passed a flush catheter up the infrarenal aorta and performed aortoiliofemoral angiogram with findings noted above. I then obtained up and over access across the bifurcation, positioned catheter in the left common femoral artery, performed a selective left lower extremity angiogram with findings noted above. I then exchanged out for a 6-Singaporean up and over sheath and the Glidewire Advantage and seeker catheter, administered 7000 units of intravenous heparin. I was able to navigate the Advantage wire and seeker catheter into the anterior tibial artery. I attempted to perform an angioplasty with a 3 mm Ultraverse balloon in the proximal portion, could not advance it further distally. I did angioplasty the proximal portion of the anterior tibial artery with a 3 mm balloon. I then exchanged out for a 0.014 wire and advanced a 2.5 mm Ultraverse balloon all the way down to the ankle through the anterior tibial artery. I then performed angioplasty there. Followup imaging demonstrated improved result with a better flow through the anterior tibial artery. Again, given the difficulty controlling the patient, at this time, I had to abort the remainder of the procedure. The wire and the sheath were backed into the right external iliac arteries, exchanged out for a short 6-Singaporean sheath. I performed angiogram to confirm access position. I then deployed a 6-Singaporean Mynx closure device and partially reversed the heparin with 50 mg protamine. Manual pressure was held for over 10 minutes. Once hemostasis was ensured, sterile dressing was applied. All sponge, [place] [address] OPERATIVE REPORT Name: RUDOLPH AGUILAR JR Room: [address] IN M.R.#: [id number] Admission: 05/29/18 Attend Phys: Kirill Bello MD Discharge: Date of : 81 Report #: [id number] counts reported correct x 2. He tolerated the procedure well and was transferred to his room in stable condition. <ELECTRONICALLY SIGNED> By: Corbin Brewer DO 06/06/18 1544 1458 1528Awade Brewer DO /nt
--- NOTE | 2018-06-06 18:34 | NUR ---
PATIENT RESTING IN BED. POST RIGHT LEG ARTERIOGRAM TODAY. GROIN SITE CLEAN/DRY/INTACT. PATIENT WAS NOT COMPLIANT WITH ORDER FOR KEEPING LEG STRAIGHT WHILE ON BEDREST FOR 4 HOURS, INSTEAD WAS FREQUENTLY SITTING UP IN BED AND NEEDED REEDUCATED. VITAL SIGNS STABLE AND PATIET IN NOAPPARENT SIGNS OF DISTRESS. HOURLY ROUNDING COMPLETD FOR PATIENT SAFETY. PATIENT TO EB ACCEPTED TO [facility] TOMORROW.
[2018-06-06 19:37] VITALS: BP 128/67
[2018-06-07] VITALS: BP 142/71
--- NOTE | 2018-06-07 02:04 | NUR ---
ASSUMED CARE OF PATIENT AT 1900. VSS, AFEBRILE. C/O PAIN IN FEET. AGREEABLE TO STAYING IN BED FOR A WHILE. STILL CONTINUES TO SLEEP SITTING UP. EATS CANDY, REFUSES HEPARIN. PAIN MEDS GIVEN CHARTED. DIALYSIS NURSE CALLED, UPDATED, PLANS TO SEE HIM IN AM. PROGRESSING SLOWLY TOWARDS POC GOALS, ANTICIPATING DC TO [facility].
[2018-06-07 04:00] VITALS: BP 124/64
[2018-06-07 04:53] LABS: HEMATOCRIT 21.7 % (42.0-52.0); HEMOGLOBIN 7.2 gm/dL (14.0-18.0); MCH 27.9 pg (26.0-34.0); MCHC 33.2 g/dL (28.0-37.0); MCV 84.1 fL (80.0-100.0); MPV 8.7 fl. (7.2-11.1); RBC 2.58 mil/uL (4.50-6.00); WBC 9.3 thou/uL (4.0-11.0)
[2018-06-07 05:05] LABS: CALCIUM 8.8 mg/dL (8.5-10.1); POTASSIUM 4.6 mmol/L (3.5-5.1)
[2018-06-07 05:13] LABS: CREATININE 8.7 mg/dL (0.6-1.3)
--- NOTE | 2018-06-07 10:17 | NUR ---
Cardiac rehab. Patient not in room. Heart Failure education left on over the bed table.
--- NOTE | 2018-06-07 11:00 | NUR ---
DC orders written, Pt should dc to [facility], pending consultants signing off. Pt currently in dialysis, nurse to confirm with consultants re: amy. Updated Angie at LT. Following.
[2018-06-07 11:40] VITALS: BP 143/79
--- NOTE | 2018-06-07 12:26 | NUR ---
RECEIVED REPORT FROM JOVANI AND ASSUMED CARE OF PT @ 1074.PT IS OFF UNIT IN DIALYSIS.PT RETURNED TO UNIT @ 0641.A/O X4 BUT DROWSY,VSS,TRACING ST ON THE MONITOR.ASSESSMENT CHARTED.CENTRAL LINE PATENT AND SALINE LOCKED.IV ANTIBIOTICS GIVEN.PT IS CALM AND COOPERATIVE WITH C/O PAIN IN BILATERAL FEET.PT IS UP WITH 1-2 ASSIST TO BSC.PT LEFT SITTING AT EDGE OF BED WITH CALL LIGHT AND FALL PRECAUTIONS IN PLACE.WILL CONTINUE TO MONITOR.
[2018-06-07] MEDS ORDERED: BACTROBAN CREAM30 G1 TOP (13:24)
[2018-06-07] MEDS ORDERED: COLACE100 MG PO (13:29)
[2018-06-07] MEDS ORDERED: EPOGEN10000 UNIT IV PUSH (13:32)
[2018-06-07] MEDS ORDERED: HEPARIN 1,1000 UNIT/ SUBQ (13:34)
[2018-06-07] MEDS ORDERED: HYDRALAZINE 10M10 MG PO (13:35)
[2018-06-07] MEDS ORDERED: MIRALAX17 GM PO (13:36)
[2018-06-07] MEDS ORDERED: ROXICODONE30 M1 PO (13:38)
[2018-06-07] MEDS ORDERED: PHOSLYRA667 MG/5 M PO (13:40)
[2018-06-07] MEDS ORDERED: PROTONIX40 M1 PO (13:42)
[2018-06-07] MEDS ORDERED: ZOSYN 3.373.375 GM/1 IV (13:55)
[2018-06-07] MEDS ORDERED: VANCO 750750 MG/250 IV (14:02)
[2018-06-07] MEDS ORDERED: APAP650 PO (14:03)
[2018-06-07] MEDS ORDERED: ONDANSETRON HCL4 M2 PO (14:03)
[2018-06-07 16:00] VITALS: BP 120/54
--- NOTE | 2018-06-07 16:37 | NUR ---
Pt is discharging to [facility], ambulance to bulk picker and transport at 8pm. Faxed dc orders. Chart copied. Nurse report provided [phone]. Pt will admit to room 214, under the care of Dr Kevin. Updated Pt's uncle.
--- NOTE | 2018-06-07 18:36 | NUR ---
VSS,CARDIAC MONITORING IN PLACE WITH NO CHANGES.PT REMAINS ON ROOM AIR.PAIN MANAGED WELL WITH PO MEDICATIONS.IV ANTIBIOTICS GIVEN.PT TO TRANSFER TO [facility].PT INFORMED OF PLAN OF CARE AND COMMUNICATES UNDERSTANDING.REPORT CALLED TO MALENA @ [facility].PT LEFT RESTING IN CHAIR WITH CALL LIGHT AND FALL PRECAUTIONS IN PLACE. HOURLY ROUNDING COMPLETED FOR PT SAFETY.WILL CONTINUE TO MONITOR FOR DURATION OF SHIFT.PT TO TRANSFER BY AMBULANCE TO [facility]-SET UP BY CASE MANAGEMENT.
--- NOTE | 2018-06-07 20:18 | NUR ---
PT DISCHARGED TO [facility] VIA EMS. HYDROCODONE GIVEN FOR PAIN 04/12.
--- NOTE | 2018-06-08 18:58 | NUR ---
FAMILY MEMBER CALLED AND STATED PT DID NOT LEAVE HOSPITAL WITH WALKER OR CELL PHONE. 2E AND 2 WEST NO WALKER OR CELL PHONE NOTED TO BE LEFT ON FLOOR. SECURITY DID NOT HAVE WALKER . CELL PHONE IN SECRUITY. SECURITY TO CALL REECE CRYSTAL AT [phone] TO ARRANGE SPECIAL OFFICER.
== END 2018-06-07 20:20 | DRG 853 ==
LOC: M.ERS 15:36 → M.ICU 17:27 → M.TBA-ER 17:27 → M.ICU 18:26 → M.2W 05-31 18:03
PROVIDERS: Emergency Medicine Emergency Medical Services; Internal Medicine Infectious Disease; Nurse Practitioner Family; Surgery; ADMIT Internal Medicine
PROC: 02HV33Z Insertion of Infusion Device into Superior Vena Cava, Percutaneous Approach (ICD-10-PCS; principal; 2018-05-29)
PROC: 5A1D70Z Performance of Urinary Filtration, Intermittent, Less than 6 Hours Per Day (ICD-10-PCS; principal; 2018-05-29)
PROC: 30233N1 Transfusion of Nonautologous Red Blood Cells into Peripheral Vein, Percutaneous Approach (ICD-10-PCS; 2018-05-30)
PROC: 5A1D70Z Performance of Urinary Filtration, Intermittent, Less than 6 Hours Per Day (ICD-10-PCS; 2018-06-02)
PROC: B41D1ZZ Fluoroscopy of Aorta and Bilateral Lower Extremity Arteries using Low Osmolar Contrast (ICD-10-PCS; 2018-06-06)
PROC: 047Q3ZZ Dilation of Left Anterior Tibial Artery, Percutaneous Approach (ICD-10-PCS; 2018-06-06)
PROC: 5A1D70Z Performance of Urinary Filtration, Intermittent, Less than 6 Hours Per Day (ICD-10-PCS; 2018-06-07)
DX: A41.9 Sepsis, unspecified organism (principal); I50.31 Acute diastolic (congestive) heart failure; J96.01 Acute respiratory failure with hypoxia; J69.0 Pneumonitis due to inhalation of food and vomit; N18.6 End stage renal disease; I13.2 Hypertensive heart and chronic kidney disease with heart failure and with stage 5 chronic kidney disease, or end stage renal disease; I42.9 Cardiomyopathy, unspecified; I73.9 Peripheral vascular disease, unspecified; I25.10 Atherosclerotic heart disease of native coronary artery without angina pectoris; D64.9 Anemia, unspecified; F17.210 Nicotine dependence, cigarettes, uncomplicated; E87.5 Hyperkalemia; S30.1XXA Contusion of abdominal wall, initial encounter; X58.XXXA Exposure to other specified factors, initial encounter; Y93.89 Activity, other specified; Y92.89 Other specified places as the place of occurrence of the external cause; Y99.8 Other external cause status; Z99.2 Dependence on renal dialysis; Z95.5 Presence of coronary angioplasty implant and graft; Z91.15 Patient's noncompliance with renal dialysis; Z79.899 Other long term (current) drug therapy; Z82.49 Family history of ischemic heart disease and other diseases of the circulatory system

== ENCOUNTER 2018-06-14 19:26 | Inpatient (IN) | payer MEDICARE, MEDICAID ==
[~2018-06-14] VITALS: Ht 170.2 cm; Wt 80.7 kg
[~2018-06-14 19:26] MED LIST changes: +APAP650 PO; +BACTROBAN CREAM30 G1 TOP; +COLACE100 MG PO; +EPOGEN10000 UNIT IV PUSH; +HEPARIN 1,1000 UNIT/ SUBQ; +HYDRALAZINE 10M10 MG PO; +MIRALAX17 GM PO; +ONDANSETRON HCL4 M2 PO; +PHOSLYRA667 MG/5 M PO; +PROTONIX40 M1 PO; +ROXICODONE30 M1 PO; +VANCO 750750 MG/250 IV; +ZOSYN 3.373.375 GM/1 IV
[2018-06-14 19:28] VITALS: BP 87/43
[2018-06-14] MEDS ORDERED: ALBUMIN (19:36)
[2018-06-14] MEDS ORDERED: HEPARIN (19:37)
[2018-06-14] MEDS ORDERED: DARZALEX100 MG/5 M (19:37)
[2018-06-14] MEDS ORDERED: SYNTHROID75 MCG PO (19:38)
[2018-06-14] MEDS ORDERED: SEROQUEL 50 MG50 MG PO (19:38)
[2018-06-14] MEDS ORDERED: MORPHINE (19:38)
[2018-06-14] MEDS ORDERED: RENVELA800 MG PO (19:39)
[2018-06-14] MEDS ORDERED: SEROQUEL 25 MG25 M1 (19:39)
[2018-06-14] MEDS ORDERED: VANCOMYCIN (19:39)
[2018-06-14 19:58] LABS: ABSOLUTE BASOPHILS 0.2 thou/uL (0.0-0.2); ABSOLUTE EOSINOPHILS 0.5 thou/uL (0.0-0.7); ABSOLUTE LYMPHOCYTES 1.2 thou/uL (0.8-5.3); ABSOLUTE MONOCYTES 1.1 thou/uL (0.0-1.2); ABSOLUTE NEUTROPHILS 3.9 thou/uL (1.6-8.1); BASOPHILS 2.4 %; EOSINOPHILS 6.7 %; HEMATOCRIT 27.5 % (42.0-52.0); LYMPHOCYTES 18.1 %; MCH 27.6 pg (26.0-34.0); MCHC 32.8 g/dL (28.0-37.0); MCV 84.2 fL (80.0-100.0); MPV 7.4 fl. (7.2-11.1); NUCLEATED RBCS 1 /100WBC; PLATELET COUNT* 243 thou/uL (150-400); POLYS 56.8 %; RBC 3.26 mil/uL (4.50-6.00); RDW-CV 17.3 % (10.5-14.5); WBC 6.9 thou/uL (4.0-11.0)
[2018-06-14 20:14] LABS: APTT 34.3 Seconds (25.0-31.3); INR 1.3; PROTIME 13.2 Seconds (9.20-11.50)
[2018-06-14 20:23] LABS: ANION GAP 14 mmol/L (7-16); BUN 20 mg/dL (7-18); CHLORIDE 96 mmol/L (98-107); CO2 27 mmol/L (21-32); CREATININE 4.8 mg/dL (0.6-1.3); GLUCOSE 62 mg/dL (70-99); POTASSIUM 4.3 mmol/L (3.5-5.1); SODIUM 137 mmol/L (136-145)
[2018-06-14 20:36] LABS: ALKALINE PHOSPHATASE 609 U/L (46-116); NT-PRO BRAIN NAT PEPTIDE > 35000 pg/mL (<300); SGOT 149 U/L (15-37); SGPT 28 U/L (30-65); TOTAL BILIRUBIN 1.6 mg/dL (<0.1-1.0); TOTAL PROTEIN 8.5 g/dL (6.4-8.2)
[2018-06-14 20:46] LABS: TROPONIN-I LEVEL 0.75 ng/mL (<0.06)
[2018-06-14 22:47] VITALS: BP 114/90
[2018-06-14 22:52] VITALS: BP 99/41
[2018-06-14 23:01] VITALS: BP 96/33
[2018-06-14 23:16] VITALS: BP 93/42
[2018-06-14 23:31] VITALS: BP 93/40
[2018-06-15] VITALS (68 sets, daily range): BP systolic 69–129; BP diastolic 30–95
--- NOTE | 2018-06-15 07:19 | NUR ---
Pt admitted to ICU from ED at 2245 last pm. BP has ranged from 70s-90s/30s-50s; Levophed titrated to 8 mcg/min over course of shift. Pt has been restless and fidgety; non-verbal and unable to follow directions. Dialysis pt, anuric according to medical record. Pt had been admitted a few weeks ago on May 29, then discharged to [place] on June 07. Pt has necrotic toes to bilat feet, and skin sloughing and peeling off of feet bilat and RLE. AJR per monitor, rate 90s to 100s. Photographs taken of feet bilat and RLE. Will continue to monitor.
[2018-06-15 09:13] LABS: MAGNESIUM 2.1 mg/dL (1.8-2.4); PHOSPHORUS* 4.8 mg/dL (2.5-4.9)
--- NOTE | 2018-06-15 09:49 | EKG ---
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1985 Requested By: Arash Alejandra Order Number: [id number] MD: Vu Lobo Measurements Intervals [place] Rate: 110 P: NV: QRS: 92 QRSD: 109 T: 35 QT: 365 QTc: 494 Interpretive Statements Junctional tachycardia Borderline right axis deviation Low voltage, extremity leads Prolonged QT interval Compared to ECG 06/03/2018 21:51:07 Junctional tachycardia now present Low QRS voltage now present Electronically Signed On 06-15-2018 9:49:31 STAFFING RN by Vu Lobo [email or web address] <ELECTRONICALLY SIGNED> By: Vu Lobo MD, [facility] 06/15/18 0949 06 06 Vu Lobo MD, [facility] /EPI
[2018-06-15 09:59] LABS: BE 1.1 mmol/L (-2 to +3); HCO3 25.8 mmol/L (22.0-26.0); PCO2 41.1 mmHg (35.0-45.0); pH 7.415 (7.340-7.450)
--- NOTE | 2018-06-15 10:48 | NUR ---
INTERDISICIPLINARY ROUNDS: PT ADMITTED FROM [facility] WITH AMS, ON BIPAP. RECENT DC FROM [facility] ON 06/07 TO [facility]. PRIOR TO THAT HOSPITAL STAY PT LIVED WITH UNCLE, WENT TO DIALYSIS AT [facility] AND USED WALKER.
--- NOTE | 2018-06-15 15:53 | EKG ---
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
--- NOTE | 2018-06-15 17:12 | NUR ---
PT CARE ASSUMED AFTER REPORT. PT UNRESPONSIVE WITH GLUCOSE OF 34. 1 AMP D50 GIVEN. BG UP TO 165. SEEN BY DR RUIZ AND D10 STARTED. BG DONE Q1H. CURRENTLY STABILIZED. PT PLACED ON BIPAP THIS AM FOR O2 SATS IN THE LOWER 80'S AND UPPER 70'S. TOLERATED UNTIL 1700 AND THEN HE REMOVED IT. PLACED ON O2 3L PER RT. LEVOPHED GTT TITRATED DOWN TOLERATED. DIALYSIS X2H TODAY. UNABLE TO COLLECT UA/UDS PT HAS NO URINE OUTPUT. PT RESPONSIVE THIS PM BUT IS CONFUSED AND MUMBLES. FAMILY VISITED TODAY INCLUDING HIS MOTHER. DENIES PAIN. SLOW TO PROGRESS TOWARDS GOALS.
[2018-06-16] VITALS (36 sets, daily range): BP systolic 71–120; BP diastolic 32–71
[2018-06-16 05:28] LABS: HEMATOCRIT 23.4 % (42.0-52.0); HEMOGLOBIN 7.6 gm/dL (14.0-18.0); MCH 27.7 pg (26.0-34.0); MCHC 32.7 g/dL (28.0-37.0); MCV 84.9 fL (80.0-100.0); MPV 7.9 fl. (7.2-11.1); RBC 2.75 mil/uL (4.50-6.00); RDW-CV 17.7 % (10.5-14.5); WBC 8.8 thou/uL (4.0-11.0)
[2018-06-16 05:57] LABS: ALBUMIN 1.5 g/dL (3.4-5.0); ALKALINE PHOSPHATASE 455 U/L (46-116); ANION GAP 14 mmol/L (7-16); BUN 23 mg/dL (7-18); CALCIUM 8.2 mg/dL (8.5-10.1); CHLORIDE 97 mmol/L (98-107); CHOLESTEROL 87 mg/dL (<200); CO2 26 mmol/L (21-32); CREATININE 5.4 mg/dL (0.6-1.3); GLUCOSE 89 mg/dL (70-99); HDL CHOLESTEROL 7 mg/dL (>40); LDL CHOLESTEROL 54 mg/dL (<100); MAGNESIUM 1.9 mg/dL (1.8-2.4); POTASSIUM 4.1 mmol/L (3.5-5.1); SGOT 188 U/L (15-37); SGPT 36 U/L (30-65); SODIUM 137 mmol/L (136-145); TC:HDL 12.4 Ratio (Not establshd); TOTAL BILIRUBIN 1.6 mg/dL (<0.1-1.0); TOTAL PROTEIN 7.3 g/dL (6.4-8.2); TRIGLYCERIDE 134 mg/dL (<150); VLDL 27 mg/dL (<40)
[2018-06-16 05:59] LABS: SERUM ASSESSMENT CLEAR
--- NOTE | 2018-06-16 07:28 | NUR ---
Pt restless and fidgety for much of shift. During the last 2 hours of shift supervisor film processing pt finally more restful. Levophed titrated up from 4 to 7 mcg/min during latter half of shift. Latest MAP 83, though MAP had been runnning upper 50s to lower 70s for much of shift. Aguila was dc'd at around 2100 last pm due to c/o "feeling like I need to pee." Only scant output from aguila, and pt reports he is anuric. Pt set off bed alarm multiple times throughout shift up until the last couple of hours. RN in room every 2-10 minutes during first half of shift for redirection and repositioning. Pt incontinent of stool toward beginning of shift. D/T pt's insistence and persistence, pt assisted up to BSC. Up with 2 max assist; pt very weak. Pt then cleaned up and assisted back to bed. Pt also requested something to eat and asked for some "pop" on a couple of occasions. Pt did tolerate sips of H2O, and was able to take HS dose of Quetiapine, and dose of Tylenol for fever of 102 F. Down to 100.6 2 hours after Tylenol taken. Will continue to monitor.
--- NOTE | 2018-06-16 07:54 | CON ---
[facility] [address] [place] [address] CONSULTATION Name: RUDOLPH AGUILAR JR Room: [address] IN .R.#: [id number] Admission: 06/14/18 Attend Phys: Alejandrina Quick MD Discharge: Date of : 81 Report #: [id number] THIS REPORT FOR: //name// CC: Juan Daniel Lucero MD FAM physician/PCP Alejandrina Quick DATE OF SERVICE: 06/15/2018 ATTENDING PHYSICIAN: Alejandrina Quick MD LOCATION: The patient is in bed 1. INDICATION FOR CONSULTATION: Hypoxemia, desaturation and obstructive sleep apnea versus central hypoventilation. HISTORY OF PRESENT ILLNESS: The patient is a 32-year-old male, with multiple medical problems, who was admitted to the Emergency Department late yesterday evening. He was discharged to [facility]. He was just discharged from the hospital several weeks ago. The patient has end-stage renal disease on Mondays, Wednesdays and Fridays hemodialysis. He presented to the Emergency Department with mental status change with confusion and decreased responsiveness. His lab showed hypoglycemia with blood sugars in the 30s and elevated troponin. He was placed in the ICU late last night. Early this morning, he was placed on pressors and he has been anuric. He became more unresponsive this morning, desaturating. I was asked to see him. He was on 8-10 liters. He was pulling off the oxygen. We made decision to put him on BiPAP 06/08 with a backup rate of 14-16 and he seemed to perk up. He became a little bit more responsive and was breathing easier without desaturation. FiO2 was 50%. No other history is available secondary to his altered mental status. No family members available. PAST MEDICAL HISTORY: Severe peripheral vascular disease. He has had right femoral artery embolectomy and again, severe peripheral vascular disease, also with end-stage renal disease, on hemodialysis for years. 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 Also, he has had hyperkalemia, hypoglycemia, diabetes is noted. He has also had a left arm AV fistula and facial surgery research done in August 2008. He has had renal failure since 2006, ischemic limb and diastolic congestive heart failure, hypothyroidism, also history of hypertension. OUTPATIENT MEDICATIONS: Included levothyroxine, Seroquel 50 mg at night and Seroquel 25 mg at night, docusate, Protonix 40 mg daily. He is on IV Zosyn 3.375 g IV q. 12 hours at this time and 1 [place] [address] CONSULTATION Name: RUDOLPH AGUILAR JR Room: [address] IN ..#: [id number] Admission: 06/14/18 Attend Phys: Alejandrina Quick MD Discharge: Date of : 81 Report #: [id number] FAMILY HISTORY: Mother with heart failure. SOCIAL HISTORY: He is an everyday smoker of a pack a day and he has recreational drug use, desomorphine within the past 3 months. Denies any alcohol use. REVIEW OF SYSTEMS: A 14-point review of systems reviewed and negative except for pertinent positives noted in HPI. PHYSICAL EXAMINATION: GENERAL: This is a 32-year-old male who was somewhat gurgling, but able to protect his airway and cough when I examined him early this morning around 9:30 or so. VITAL SIGNS: Blood pressure was 113/67, heart rate was 104-108 and sinus tachycardia, respirations were 16 with a backup rate of 16 and temperature is 38.7 degrees. HEENT: Pupils are midpoint and reactive. He did have a gag reflex. NECK: Supple, without nodes. No increase in jugular venous pressure. CHEST: Reveals a few rhonchi and basilar crackles, right greater than left. CARDIOVASCULAR: Sinus tachycardia with heart rate of 104. No S3 is noted. ABDOMEN: Soft, without masses or megaly. EXTREMITIES: Feet had marked abnormalities with desquamation of his feet and sclerodermatous changes with arterial insufficiency from his mid ankles on down. Peripheral pulses are 0-1+. He had no tactile stimuli there. His hands and fingers also noted the same changes. NEUROLOGIC: He can move all 4 extremities to commands at this time. LABORATORY DATA: From yesterday evening from late 06/14/2018 shows a hemoglobin of 9, white count 6900, MCV of 84, platelets are 243,000 and normal differential was noted. Sodium is 137, potassium is 4.3, carbon dioxide was 27, BUN was 20, creatinine is 4.8, GFR 17. Total bilirubin elevated at 1.6, AST was elevated at 149, ALT was low at 28. Alkaline phosphatase was elevated at 609 and creatine kinase was 2449. Anti-proBNP was 35,000 and albumin was 2.0. ABGs on 50% BiPAP this morning 06/08 with a backup rate of 14 shows a pO2 of 216, pH of 7.41, pCO2 is 41, bicarbonate was 26, sat was 98%. Chest x-ray shows heart upper limits of normal and a right lower lobe infiltrate. CT of the head showed some intracranial arthrosclerosis, but no bleeds, etc. Chest x-ray not changed much since 05/31/2018. There is unchanged pleural parenchymal opacity in the right lower lobe, may represent some scarring, some loculated right effusion. IMPRESSION: 1. Metabolic encephalopathy. 2. Sepsis syndrome. 3. Necrotic feet bilaterally, most likely infected. 4. Non-ST elevation myocardial infarction. 5. Persistent hypoglycemia. [address] [address] CONSULTATION Name: RUDOLPH AGUILAR JR Room: [address] IN [facility]#: [id number] Admission: 06/14/18 Attend Phys: Alejandrina Quick MD Discharge: Date of : 81 Report #: [id number] 6. Elevated liver enzymes. 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 8. Obstructive sleep apnea versus central sleep apnea and hypoventilation syndrome. 9. Hypothyroidism. 10. End-stage renal disease. PLAN: Continue antibiotics, heparin drip. Waiting Vascular Surgery consult. We will see if he can just leave him off the BiPAP and then possibly get him off the BiPAP to high flow cannula. Follow up his chest x-rays with his fluid resuscitation. If he does not improve or his mental status continues to be poor, may consider Neurology consultation. I do not think we need to intubate him right now. At this time, he can protect his airway. If that should change or get worse, then we may need intubation for airway protection and see if he does not perk up on the ventilator. He has extremely poor prognosis because of all the above multiple comorbidities. I spent 36 minutes on critical care consult. <ELECTRONICALLY SIGNED> By: Bennie Wang MD 06/16/18 0754 [id number] Wang MD /nt
--- NOTE | 2018-06-16 08:05 | CON ---
[address] [address] CONSULTATION Name: RUDOLPH AGUILAR JR Room: [address] IN M.R.#: [id number] Admission: 06/14/18 Attend Phys: Alejandrina Quick MD Discharge: Date of : 81 Report #: [id number] THIS REPORT FOR: //name// CC: [facility] physician/PCP Alejandrina Quick DATE OF SERVICE: 06/15/2018 INFECTIOUS DISEASE CONSULTATION ATTENDING PHYSICIAN: Alejandrina Quick MD. REASON FOR EVALUATION: Septic shock. HISTORY OF PRESENT ILLNESS: Chart reviewed, patient examined. This is a 32-year-old well known to myself. He was just discharged to acute long-term term care facility. He has history of hypertension with severe vasculopathy including end-stage renal disease. He is on dialysis. He has had issues with his distal lower extremity severe compromise with gangrene. He has been seen by Vascular Surgery who has attempted revascularization both lower extremities. He has been on antimicrobial therapy. This has been broad spectrum, has not had any recent positive blood cultures. Apparently, he had developed increasing encephalopathy, found to be hypotensive and febrile. Due to concerns about early septic shock, he was transferred over. He is currently on ventilatory support with BiPAP, pressor support with norepinephrine. He has been started on broad spectrum antimicrobial therapy with piperacillin/tazobactam as well as vancomycin, given a dose of Levaquin as well. At this point, he is minimally responsive and is unable to give any details to history. ALLERGIES: None known. CURRENT MEDICATIONS: Include p.r.n. analgesics, antiemetics, ipratropium, albuterol inhaler. He is on Levophed, Sevelamer, quetiapine, levothyroxine, Zosyn, vancomycin. PAST MEDICAL HISTORY: As described above hypertension, severe vasculopathy, end-stage renal disease, on dialysis; does have chronic gangrenous changes involving bilateral lower extremities extending up to the leg. SOCIAL HISTORY: He smokes cigarettes. No ethanol. FAMILY HISTORY: Noncontributory. REVIEW OF SYSTEMS: Not obtainable. PHYSICAL EXAMINATION: [place] [address] CONSULTATION Name: RUDOLPH AGUILAR JR Room: [address]#: [id number] Admission: 06/14/18 Attend Phys: Alejandrina Quick MD Discharge: Date of : 81 Report #: [id number] GENERAL: He appears chronically ill, certainly older than his stated age. Again noted minimal responsive. He is undernourished and is in moderate to severe distress. VITAL SIGNS: Temperature 101.0, pulse 93, respirations 14, blood pressure is 97/52, MAP of 67, initially it been in the 50s. HEENT: Remarkable for the BiPAP. NECK: Seemingly is supple. LUNGS: Few scattered coarse breath sounds. HEART: Borderline tachycardic, cannot appreciate murmur. ABDOMEN: Appears to be soft. There are no peritoneal sounds. EXTREMITIES: Distal lower extremities have associated dry gangrene extend above the level of the ankle, almost mummified appearance. GENITOURINARY: Deferred. RECTAL: Deferred. LABORATORY DATA: Plain film of the feet bilaterally, extensive vascular calcification, soft tissue irregularities involving the medial aspect of the left great toe. No current findings for osteomyelitis. Most recent ABG, pH 7.415, pCO2 of 41.1, pO2 of 216, FiO2 of 50% on BiPAP. Ammonia is 13. TSH elevated at 17.536. Blood cultures are sterile thus far. Lactic acid initially was 2.4, did increase to 3.8. Electrolytes: Sodium 137, potassium 4.3, chloride 96, bicarbonate is 27, gap of 14, BUN and creatinine 20 and 4.8, alkaline phosphatase of 609, estimated GFR of 17, albumin of 2, total protein of 8.5. Chest x-ray, parenchymal opacity in the right lower lobe lung, suspected scarring, loculated right pleural fluid a possibility, no acute-appearing pulmonary infiltrates from last week when he was here. CBC: White count of 6.9, H and H 9.0 and 27.5, platelets of 243. ASSESSMENT: Septic shock, likely on the basis of bilateral lower extremity gangrene. He has been on broad-spectrum antibiotic therapy, certainly given the degree of tissue . Due to the infarct, it is difficult to appreciate that he would not be a high risk for infectious complications. Certainly altered mental status is question of possible aspiration as well. We will continue broad-spectrum therapy at this point. I do not see any effective therapy other than bilateral lower extremity amputation as level defined by what would be likely to heal either below-knee amputation or above-knee amputation. We will monitor. <ELECTRONICALLY SIGNED> By: Shankar Gonzalez MD 06/16/18 0805 1310 [id number] Gonzalez MD /nt
[2018-06-16 08:21] LABS: BE 4.9 mmol/L (-2 to +3); HCO3 29.7 mmol/L (22.0-26.0); PCO2 45.8 mmHg (35.0-45.0); PO2 68.3 mmHg (75.0-100.0)
--- NOTE | 2018-06-16 10:00 | NUR ---
CONTINUE TO FOLLOW, PT DROWSY TODAY. PER NURSE, NOT WANTING TO WEAR BIPAP. SPOKE WITH [facility] AND FAXED CLINICAL UPDATE. ANTICIPATE PT MAY NEED TO RETURN TO [facility] [place]. WILL FOLLOW [facility] [phone] FAX [phone]
--- NOTE | 2018-06-16 10:49 | NUR ---
PT ANURIC UNABLE TO GET UA OR DRUG SCREEN.
--- NOTE | 2018-06-16 11:18 | NUR ---
Nutrition: Consult received for poor intake. Pt is going for HD today. RN is hopeful he will eat well after that. He was too tired this morning to eat any BKFST. H/o ESRD on HD, anemia of CKD. Bilat gangrene toes, refuses amputation. Labs: BUN 23, cr 5.4, elevated alk-phos, alb 1.5, prealb 5.4. BM yday. Wt: 172#. Severely depleted protein stores. Pt may benefit from oral supplement Nepro once he is eating better, or Beneprotein supplement. RD will follow for po intake, labs, need for supplement. Moderate risk. No nutrition interventions needed today.
--- NOTE | 2018-06-16 13:15 | 2DMMODE ---
[place] [address] 2 D/M-MODE ECHOCARDIOGRAM Name: RUDOLPH AGUILAR JR Room: [address] IN [facility]#: [id number] Admission: 06/14/18 Attend Phys: Alejandrina Quick, Discharge: Date of : 81 Date of Service: 06/16/18 1315 Report #: [id number] THIS REPORT FOR: //name// APPROVED REPORT Study performed: 06/16/2018 09:41:46 EXAM: Comprehensive 2D, Doppler, and color-flow Echocardiogram Patient Location: In-Patient Room #: 001 Status: routine BSA: 1.92 HR: 83 bpm BP: 100/54 mmHg Rhythm: NSR Other Information Study Quality: Good 2D Dimensions IVSd: 13.07 (7-11mm) LVOT Diam: 20.25 (18-24mm) LVDd: 38.65 mm PWd: 11.56 (7-11mm) Ascending Ao: 25.02 (22-36mm) LVDs: 26.36 (25-40mm) Aortic Root: 28.77 mm Volumes Left Atrial Volume (Systole) LA ESV Index: 60.40 mL/m2 Aortic Valve AoV Peak Sam.: 2.07 m/s AO Peak Gr.: 17.22 mmHg LVOT Max P.66 mmHg AO Mean Gr.: 10.16 mmHg LVOT Mean P.81 mmHg LVOT Max V: 1.38 m/s AO V2 VTI: 35.76 cm LVOT Mean V: 0.89 m/s MERLENE (VTI): 2.28 cm2 LVOT V1 VTI: 25.34 cm Mitral Valve MV Mean Gr.: 6.97 mmHg TDI Medial E' Sam.: 0.13 m/s Lateral E' Sam.: 0.17 m/[place] [address] 2 D/M-MODE ECHOCARDIOGRAM Name: RUDOLPH AGUILAR JR Room: [address] IN [facility]#: [id number] Admission: 06/14/18 Attend Phys: Alejandrina Quick, Discharge: Date of : 81 Date of Service: 06/16/18 1315 Report #: [id number] Pulmonary Valve PV Peak Sam.: 1.27 m/s PV Peak Gr.: 6.43 mmHg Tricuspid Valve RAP Estimate: 15.00 mmHg TR Peak Gr.: 28.48 mmHg RVSP: 43.00 mmHg PA Pressure: 43.00 mmHg Left Ventricle The left ventricle is normal size. There is normal LV segmental wall motion. Mild concentric left ventricular hypertrophy. Left ventricular systolic function is normal. The left ventricular ejection fraction is within the normal range. LVEF is 55-60%. Transmitral Doppler flow pattern suggests restrictive physiology. Right Ventricle Right ventricle is mildly dilated. The right ventricular systolic function is normal. Atria Left atrium is moderately dilated. Right atrium is moderately dilated. Aortic Valve Mild aortic valve sclerosis. No aortic regurgitation is present. There is no aortic valvular stenosis. Mitral Valve Moderate mitral annular calcification. Mild mitral regurgitation. No evidence of mitral valve stenosis. Tricuspid Valve The tricuspid valve is normal in structure. Mild tricuspid regurgitation. Moderate pulmonary hypertension. Pulmonic Valve The pulmonary valve is normal in structure. There is no pulmonic valvular regurgitation. Great Vessels The aortic root is normal in size. IVC is dilated and collapses <50% with inspiration. Pericardium There is [place] [address] 2 D/M-MODE ECHOCARDIOGRAM Name: RUDOLPH AGUILAR JR Room: [address] IN [facility]#: [id number] Admission: 06/14/18 Attend Phys: Alejandrina Quick, Discharge: Date of : 81 Date of Service: 06/16/18 1315 Report #: [id number] effusion. <Conclusion> The left ventricle is normal size. Mild concentric left ventricular hypertrophy. Left ventricular systolic function is normal. The left ventricular ejection fraction is within the normal range. Transmitral Doppler flow pattern suggests restrictive physiology. Right ventricle is mildly dilated. Left atrium is moderately dilated. Right atrium is moderately dilated. Mild aortic valve sclerosis. There is no aortic valvular stenosis. Moderate mitral annular calcification. Mild mitral regurgitation. Mild tricuspid regurgitation. Moderate pulmonary hypertension. IVC is dilated and collapses <50% with inspiration. Left pleural effusion. <ELECTRONICALLY SIGNED> By: Joe Schroeder MD, FACC 06/16/18 1315 14 14 Joe Schroeder MD, FACC /INF
--- NOTE | 2018-06-16 16:36 | EKG ---
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1985 Requested By: Vu Lobo Order Number: [id number] MD: Joe Schroeder Measurements Intervals [place] Rate: 89 P: 0 TX: 71 QRS: 99 QRSD: 119 T: 56 QT: 445 QTc: 542 Interpretive Statements Sinus rhythm Short TX interval Low voltage, extremity leads Baseline wander in lead(s) V2,V3,V6 Compared to ECG 06/15/2018 13:15:22 Short TX interval now present Accelerated junctional rhythm no longer present Electronically Signed On 06-16-2018 16:35:49 OPERATIONS LIAISON by Joe Schroeder [email or web address] <ELECTRONICALLY SIGNED> By: Joe Schroeder MD, FACC 06/16/18 1635 9 09 Joe Schroeder MD, FAC /EPI
--- NOTE | 2018-06-16 17:22 | CON ---
[address] [address] CONSULTATION Name: RUDOLPH AGUILAR JR Room: [address] IN .R.#: [id number] Admission: 06/14/18 Attend Phys: Alejandrina Quick MD Discharge: Date of : 83 Report #: [id number] THIS REPORT FOR: //name// CC: [facility] physician/PCP Alejandrina Quick DATE OF SERVICE: 06/15/2018 TYPE OF REPORT: Cardiology consultation. HISTORY OF PRESENT ILLNESS: The patient is a 32-year-old black male who I was asked to see in ICU today after he had an elevated troponin. The history is obtained from the old records as well as the patient's mother who is present. He has a history of hypertension, has been on dialysis for the past several years because of end-stage renal disease. He has had multiple hospitalizations here at [place]. He was actually just discharged a week ago. He has a long history of PAD and was admitted with gangrenous toes. He had respiratory distress. He was placed on dialysis. He was noted to have gangrene of his toes. He decided to discharge him to [place] with anticipated autoamputation. The patient has been noncompliant in the past. The patient just discharged a week ago. He was brought back from [place] last night. Apparently, he was confused and somnolent. He had fallen, had shortness of breath. He was admitted with hypotensive, felt to be septic. He is placed on BiPAP. His troponin was noted to be elevated. Cardiology consultation was requested. He denied any recent chest pain, shortness of breath, palpitations and lightheadedness. PAST MEDICAL HISTORY: Significant for tonsillectomy and fistula placement. He has a history of hypertension. No history of diabetes. He has a history of peripheral arterial disease. MEDICATIONS: Include Synthroid, Seroquel and Protonix. He is no longer on clonidine. ALLERGIES: He has no known drug allergies. FAMILY HISTORY: His father had heart disease. SOCIAL HISTORY: He is from his , lives in [place] with family members. He smoke cigarettes. No alcohol abuse. Has used illicit drugs in the past, but no IV drugs. REVIEW OF SYSTEMS: No history of stroke, asthma, peptic ulcer disease, liver disease, cancer or psychiatric illness. PHYSICAL EXAMINATION: [place] [address] CONSULTATION Name: RUDOLPH AGUILAR JR Room: [address]#: [id number] Admission: 06/14/18 Attend Phys: Alejandrina Quick MD Discharge: Date of : 81 Report #: [id number] GENERAL: Revealed a middle-aged black male, on BiPAP. No acute distress. VITAL SIGNS: He had a blood pressure of 110/60, pulse is 100 and his temperature 101. HEENT: He was anicteric. Conjunctivae pink. Mucous membranes moist. CHEST: Clear to auscultation. CARDIOVASCULAR: Regular rate and rhythm. ABDOMEN: Soft. EXTREMITIES: He had dry gangrene of his toes noted. RADIOLOGICAL DATA: His ECG on admission showed what appeared to represent sinus rhythm, no significant ST or T-wave changes. His workup included CT scan of the head that showed no acute abnormality. Chest x-ray showed normal heart size, clear lung faith. LABORATORY DATA: BUN 20 and creatinine 4.8. Albumin 2.0. Troponin 0.75. White blood cell count 6.9, hemoglobin 9 and hematocrit 27.5. IMPRESSION AND RECOMMENDATIONS: 1. Borderline troponin. No history of angina. Recommend conservative approach. 2. End-stage renal disease. The patient on dialysis. 3. Hypotension, concerned about sepsis. 4. Dry gangrene of his feet. 5. Peripheral arterial disease. 6. Hypertension. 7. History of illicit drug use. 8. Tobacco abuse. 9. Anemia. <ELECTRONICALLY SIGNED> By: Vu Lobo MD, FACC 06/16/18 1722 1615 2020Dahanna Lobo MD, FACC /nt
--- NOTE | 2018-06-16 18:24 | NUR ---
PT PROGRESSING TOWARD GOALS. PT ABLE TO SPEAK CLEARLY AND FOLLOW COMMANDS. PT IS CONCERNED ABOUT THE INFECTION IN HIS FEET AND NEEDING AN AMPUTATION. PT CURRENLTY OFF OF LEVOPHED AND MAINTAINING BLOOD PRESSURE. PT ABLE TO EAT. FLUIDS ARE BEING DC'D.
--- NOTE | 2018-06-16 19:01 | NUR ---
DIALYSIS REMOVED 3L OFF OF PT.
[2018-06-17] VITALS (61 sets, daily range): BP systolic 57–121; BP diastolic 22–70
[2018-06-17 04:57] LABS: HEMATOCRIT 23.3 % (42.0-52.0); HEMOGLOBIN 7.7 gm/dL (14.0-18.0); MCV 84.9 fL (80.0-100.0); MPV 8.2 fl. (7.2-11.1); RBC 2.74 mil/uL (4.50-6.00); RDW-CV 18.6 % (10.5-14.5); WBC 8.9 thou/uL (4.0-11.0)
[2018-06-17 05:20] LABS: ALBUMIN 1.5 g/dL (3.4-5.0); CALCIUM 8.4 mg/dL (8.5-10.1); CREATININE 4.7 mg/dL (0.6-1.3); MAGNESIUM 1.8 mg/dL (1.8-2.4); POTASSIUM 4.3 mmol/L (3.5-5.1); TOTAL BILIRUBIN 1.7 mg/dL (<0.1-1.0); TOTAL PROTEIN 7.5 g/dL (6.4-8.2)
--- NOTE | 2018-06-17 07:27 | NUR ---
Pt now alert and oriented. 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 Pt remains restless due to feet "burning" and intermittent back pain. Pt sits up in bed and dangles one or both legs off side of bed. Pt restarted on Levophed after midnight; titrated to 6 mcg/min. Will continue to monitor.
--- NOTE | 2018-06-17 12:22 | NUR ---
PATIENT ALERT UP ON SIDE OF BED. TAKING PO WELL. REMAINS ON LEVOPHED. DENIES PAIN OR NAUSEA.
--- NOTE | 2018-06-17 18:50 | NUR ---
PATIENT OFF LEVOPHED SINCE 1600. WASHED AND PAINTED LEGS AND FEET. LEFT FOOT SLUFFED 3BY 4 INCH SKIN FLAP STILL ATTACHED. WILL REPORT TO NOC NURSE AND PHYSCIAN IN AM. PT DENIES PAIN OR SOA. HAVING MILD HALLUCINATIONS EASILY REORIENTS.
[2018-06-18] VITALS (18 sets, daily range): BP systolic 90–125; BP diastolic 30–75
[2018-06-18 06:36] LABS: CALCIUM 8.8 mg/dL (8.5-10.1); POTASSIUM 4.5 mmol/L (3.5-5.1)
[2018-06-18 06:37] LABS: CREATININE 6.4 mg/dL (0.6-1.3)
--- NOTE | 2018-06-18 07:34 | NUR ---
Pt's BP stable overnight. Remains off Levophed (since 1600 yesterday). Pt picked at skin to BLE. Large section of skin peeled away from L foot; placed dressings to BLE per pt request, painted wounds w/ Betadine. VSS. Will continue to monitor.
--- NOTE | 2018-06-18 08:46 | CON ---
[address] [address] CONSULTATION Name: RUDOLPH AGUILAR JR Room: [address] IN M.R.#: [id number] Admission: 06/14/18 Attend Phys: Alejandrina Quick MD Discharge: Date of : 81 Report #: [id number] THIS REPORT FOR: //name// CC: [facility] physician/PCP Alejandrina Quick DATE OF SERVICE: 06/15/2018 NEPHROLOGY CONSULTATION CONSULTING PHYSICIAN: Dr. Fisher. REASON FOR NEPHROLOGY CONSULTATION: End-stage renal disease for maintenance hemodialysis needs. CHIEF COMPLAINT: He was transferred from [facility] because of confusion and hypoglycemia. HISTORY OF PRESENT ILLNESS: This is a 32-year-old male who is . He has a past medical history of ESRD and he has been at [facility] for quite some time, where he is there for treatment for ischemic toes, which is acutely to a drug reaction to desomorphine. The patient's last dialysis was yesterday and they had to call rapid response on him about 3 times because of confusion and agitation. He was found to have hypoglycemia and he has been having persistent hypoglycemia all night. His last blood glucose was less than 30 despite being on D-10 at 100 mL an hour and he has been getting D-50 ampules all night. He also has necrotic feet, almost all toes and also has evidence of elevated troponin. So, he has been started on some empiric antibiotic treatment as well. Chest x-ray looks a little wet. He was agitated and desaturating. Hence, he is on BiPAP currently. He is on low-dose Levophed because his blood pressure was quite low; yesterday, it went to as low as 76/43. He is currently not responsive. He has a left arm AV fistula. ALLERGIES: No known drug allergies. REVIEW OF SYSTEMS: I could not obtain because of his mental status. He is unresponsive. MEDICATIONS: Reported are vancomycin, levothyroxine, quetiapine, sevelamer, , Docusate, polyethylene glycol, pantoprazole, Zosyn, acetaminophen and ondansetron. PAST MEDICAL AND SURGICAL HISTORY: Includes hypertension, tonsillectomy, renal failure, surgery done recently in 08/2008, left arm AV fistula, peripheral vascular disease, ischemic limb, chronic diastolic congestive heart failure [place] [address] CONSULTATION Name: RUDOLPH AGUILAR JR Room: [address] IN [facility]#: [id number] Admission: 06/14/18 Attend Phys: Alejandrina Quick MD Discharge: Date of : 81 Report #: [id number] FAMILY HISTORY: Mother has history of heart failure. SOCIAL HISTORY: The patient is not awake enough to tell me that he was using this desomorphine. He does have history of everyday smoking and the history of alcohol use is not known. PHYSICAL EXAMINATION: VITAL SIGNS: Blood pressure is 97/52, his pulse ox is 99% on BiPAP 50%, his temperature is 38.3, his pulse is 93 and his respiratory rate is 14. GENERAL: He is unresponsive. HEAD, EYES, EARS, NOSE AND THROAT: He has a BiPAP in place. He has some facial edema. NECK: JVD difficult to assess. CHEST: Bilateral basilar crackles anteriorly. CARDIOVASCULAR: S1, S2 normal. No murmurs heard. ABDOMEN: Soft, nontender and nondistended. Bowel sounds are diminished. EXTREMITIES: He does have 1+ edema, bilateral lower extremities and bilateral feet are peeling, necrotic all toes, bilateral feet. His dialysis access is his left arm AV fistula with good bruit and thrill. NEUROLOGICAL FUNCTION: He is unresponsive. PSYCHIATRIC: I cannot assess his mood right now. LABORATORY DATA: His hemoglobin is 9.0. His potassium is 4.3. His white count was 6.9 and his platelet count was 243,000. His troponin was 0.75. Blood sugar, his fingerstick blood sugar was less than 30 and other labs were reviewed. IMAGING DATA: Head CT, chest x-ray and cervical spine CT were reviewed. ASSESSMENT: 1. End-stage renal disease. He is on hemodialysis and it looks like he is on hemodialysis every Tuesday, Tuesday and Tuesday at [facility]. 2. Mild fluid overload. 3. He does have acute respiratory failure. He is on BiPAP currently. 4. Anemia of chronic kidney disease, hemoglobin is 9.0. 5. Hypotension. Likely this is septic shock. He is on Levophed and empiric antibiotics and ID has been consulted and most likely etiology is his feet. 6. Elevated troponin. 7. Persistent hypoglycemia, most likely connected to persistent hypoglycemia. PLAN: 1. We will plan on his regular dialysis treatment tomorrow, but we will plan on 2 hours of dialysis treatment today. We will try to remove 2 liters out of his system if he tolerates because he will be getting fluids all night and his chest x-ray does look a little wet. I will change the D-10 normal saline to D-[address] [address] CONSULTATION Name: RUDOLPH AGUILAR JR Room: [address] IN [facility]#: [id number] Admission: 06/14/18 Attend Phys: Alejandrina Quick MD Discharge: Date of : 81 Report #: [id number] at 100 mL an hour for now, which we will have to decrease once his sugars are better. We will also check his phosphorus level. 2. We will also continue his Epogen with dialysis. 3. Further care as per primary team. Thank you for this consultation. I discussed the plan with the patient's nurse and dialysis nurse and we will continue to follow along with you. <ELECTRONICALLY SIGNED> By: Farideh Mitchell MD 06/18/18 0846 0944 [id number] Mitcehll MD /nt
[2018-06-19] VITALS: BP 119/66
[2018-06-19 04:00] VITALS: BP 102/51
[2018-06-19 04:56] LABS: HEMATOCRIT 26.1 % (42.0-52.0); HEMOGLOBIN 8.5 gm/dL (14.0-18.0); MCH 27.6 pg (26.0-34.0); MCHC 32.6 g/dL (28.0-37.0); MCV 84.6 fL (80.0-100.0); RBC 3.08 mil/uL (4.50-6.00); RDW-CV 18.2 % (10.5-14.5); WBC 9.4 thou/uL (4.0-11.0)
[2018-06-19 05:10] LABS: CALCIUM 9.4 mg/dL (8.5-10.1); CREATININE 7.3 mg/dL (0.6-1.3); MAGNESIUM 2.2 mg/dL (1.8-2.4); POTASSIUM 4.9 mmol/L (3.5-5.1)
--- NOTE | 2018-06-19 05:51 | NUR ---
PATIENT HAS BEEN AWAKE MOST OF THE NIGHT. ORIENTED TO SELF. HAS BEEN HALLUCINATING ABOUT BUGS AND SON BEING IN THE ROOM. WHILE REDRESSING FEET A LARGE PIECE OF SOLE OF RIGHT FOOT CAME OFF. PATIENT COMPLAINS OF PAIN AT TIMES, TYLENOL GIVEN ONCE. IV IN RIGHT JUGULAR WORKS WELL WITH ANTIBIOTICS RUNNING. PATIENT HAS BEEN SITTING ON THE SIDE OF THE BED MOST OF THE NIGHT, SAYS IT HELPS WITH PAIN. VITAL SIGNS HAVE BEEN STABLE. CALL LIGHT IS IN REACH, WILL CONTINUE TO MONITOR,
[2018-06-19 07:40] VITALS: BP 100/58
[2018-06-19 12:00] VITALS: BP 100/52
--- NOTE | 2018-06-19 15:25 | NUR ---
GONZALO met with pt and pt mother and family member. Pt nurse discussed pt to have amputation and GONZALO discussed consent form with pt mother who would be next of kin to sign. SW discussed dc planning as well and pt mother expressed their desire not to return to [facility] [place]. GONZALO discussed the need for a LTAC would be likely and GONZALO mentioned the only other 2 options in the area and that SW would continue to follow to assist with safe dc planning. GONZALO called and followed up with Ruby at [facility] who said that they would be able to accept pt back for post suregery care, etc.
--- NOTE | 2018-06-19 17:08 | NUR ---
ASSESSMENT COMPLETE. PT ALERT AND ORIENTED TO SELF DURING THE DAY. PT HAS HALLUCINATIONS THROUGHOUT THE DAY. PT IS CALM AND COOPERATIVE. PT TO HAVE RIGHT AKA WITH DR ORTIZ TOMORROW, CONSENTS SIGNED BY MOTHER. DRESSING TO BILAT LEGS CHANGED TODAY, DRESSINGS C/D/I. PT SAT UP ON SIDE OF BED MOST OF THE DAY. PT CURRENTLY RECEIVING DIALYSIS IN ROOM. PT TAKES MEDICATIONS WITHOUT DIFFICULTY. RIGHT TRIPLE LUMEN IJ. PT IS ON ROOM AIR WITH [place] SATS, VITALS STABLE. PT IS FALL RISK, BED ALARM ON. PT UP WITH 2 ASSIST TO CHAIR. SEE ASSESSMENT AND VITALS FOR OTHER DETAILS. CALL LIGHT WITHIN REACH, WILL CONTINUE PLAN OF CARE
[2018-06-19 20:30] VITALS: BP 130/55
[2018-06-20] VITALS (7 sets, daily range): BP systolic 90–110; BP diastolic 44–61
[2018-06-20 04:17] LABS: CALCIUM 8.9 mg/dL (8.5-10.1); POTASSIUM 4.6 mmol/L (3.5-5.1)
[2018-06-20 04:29] LABS: CREATININE 5.5 mg/dL (0.6-1.3)
--- NOTE | 2018-06-20 07:13 | NUR ---
PT AWAKE MOST OF SHIFT. ASSESSMENT DOCUMENTED. MEDS GIVEN PER E-MAR. IJ PATENT FOR MOST OF SHIFT. PT PULLED OUT HIS IJ THIS SHIFT, DR NOTIFED. NO REPORTS OF PAIN OR NAUSEA THIS SHIFT. PT BECAME VERY AGGITATED THIS AM THREATENING STAFF AND BALLING HIS FISTS UP THREATING TO HIT STAFF. PT REFUSED TO STAY IN BED. SITTER PLACED WITH PATIENT THIS AM TO KEEP PATIENT FROM FALLING OUT OF BED AND TO KEEP TELE MONITOR IN PLACE. PT KEPT REMOVING LEG DRESSINGS. WILL CONTINUE WITH PLAN OF CARE.
--- NOTE | 2018-06-20 14:52 | NUR ---
CONSULTED FOR VASCULAR ACCESS. LEFT ARM LIMB ALERT RELATED TO DIALYSIS FISTULA. RIGHT UPPER ARM NOT APPROPRIATE RELATED TO PT AGE AND RENAL STATUS WITH POSSIBLE NEED FOR FUTURE FISTULA. RIGHT LOWER ARM ASSESSED WITH ULTRASOUND 2 ATTEMPTS MADE AT PIV ACCESS. BOTH UNSUCCESSFUL. NO OTHER VEIN IDENTIFIED. 24G PIV WAS PLACED IN BACK OF RIGHT HAND. LINE SECURED.
--- NOTE | 2018-06-20 17:30 | NUR ---
GONZALO was informed of pt family request for transfer to [facility]. GONZALO called [facility] transfer team and spoke with Valentina and faxed needed face sheet and insurance information. GONZALO received call back stating that at [facility] spoke with Dr Fisehr and they were considering transfer however [facility] did not have any beds available and they had a 19 pt waiting list. GONZALO informed pt mother of above information. Then pt mother and friend asked to speak with GONZALO to clarify reasoning for hold on surgery, and consent, confusion, lack of DPOA. Then pt , pt cousin and other family came for the discussion as well and expressed need to speak with physician; they expressed that they did not want pt to have to wait any longer for surgery. GONZALO discussed with Case Funeral Director, and PI and Risk Management involved as well to discuss again with pt family. Pt nurse also sent messages to surgeon's office for request of a family meeting with a physician. GONZALO to continue to follow to assist with safe dc planning.
--- NOTE | 2018-06-20 19:00 | NUR ---
DR HAHN HERE TO MEET WITH FAMILY, HE SPOKE WITH , MOTHER, AND OTHER FAMILY MEMBERS. OUTLINED PLAN OF CARE FOR PT'S DRY GANGRENE OF THE LEGS, THERE IS NO EMERGENT NEED FOR SURGERY AT THIS TIME, GAVE THE FAMILY THE CRITERIA FOR WORSENING OF CONDITION THAT WOULD REQUIRE SURGERY. DR. HAHN ANSWERED THE QUESTIONS THAT THE FAMILY HAD. AT THIS TIME, THE PLAN IS TO CONTINUE TO MONITOR THE CONDITION OF HIS GANGRENE, NO PLANS FOR SURGERY UNLESS HIS CONDITION CHANGES, AND CONTINUE TO TREAT HIS OTHER MEDICAL ISSUES. DR. HAHN EXPLAINED TO FAMILY THE LEGALITIES OF NO ONE HAVING DPOA SO NO ONE CAN GIVE CONSENT FOR THE PATIENT, AND THAT IN THE PAST THE PATIENT HAS REFUSED SURGERY. AND MOTHER GIVEN PHONE NUMBER TO THE [facility] SO THEY CAN CALL TO CHECK ON PATIENT IF THEY ARE NOT HERE.
--- NOTE | 2018-06-20 20:37 | NUR ---
ASSESSMENT COMPLETE. PT AGITATED AND COMBATIVE THIS AM. PT CONFUSED WITH HALLUCINATIONS. PT YELLING AND CUSSING REFUSING TO LET NURSES CHANGE BED WITH STOOL IN IT. PT REFUSING TO LET NURSE PLACE IV. DR CHANEY TALKED TO PT AND HE AGREED TO TAKE ANXIETY MEDICATION TO HELP HIM CALM DOWN. MEDICATION GIVEN AND IV STARTED BY INFUSION NURSE. PT EVENTUALLY PULLED IV OUT AND INFUSION NURSE UNABLE TO PLACE IV. SURGERY WAS NOT DONE TODAY DUE TO LEGAL ISSUES WITH CONSENTS FOR SURGERY. PT UNABLE TO SIGN CONSENT AND HE HAS NO DPOA AT THIS TIME. RISK DEPARTMENT AND DR HAHN SPOKE WITH FAMILY AND EDUCATION WAS GIVEN ON REASON FOR HOLDING OFF ON SURGERY AT THIS TIME. IF PT BECOMES UNSTABLE THEN SURGERY CAN BE DONE FOR MEDICAL EMERGENCY. DR HAHN PLACED TRIPLE LUMEN LEFT IJ AT BEDSIDE. STAT XRAY DONE, OK TO USE. PT HAS D10 INFUSING AT 30ML TO KEEP SUGARS FROM DROPPING. PT ABLE TO EAT SOME ICE CREAM AND DRINK SOME JUICE. EATING ABOUT 30% OF MEALS. PT IS VERY DROWSY THIS EVENING. PT HAS NOT SLEPT IN 3 DAYS. IV ABX STARTED LATE DUE TO NO ACCESS THROUGHOUT THE DAY. DRESSINGS TO BLE CHANGED. PT IS ST IN LOW 100'S ON TELE MONITOR. LEFT LIMB ALERT FOR FISTULA. PT IS WEAK AND UNSTEADY, UP WITH 2 ASSIST. PT INCONT OF STOOLS MULTIPLE TIMES DURING THE DAY. PT HAD 4 LOOSE STOOLS, NEED SAMPLE FOR CDIFF. ISOLATION IN PLACE. PT IS ON ROOM AIR, VITALS STABLE AT THIS TIME. AFEBRILE. Q4 ACCUCHECKS ORDERED. PT IS CURRENTLY SLEEPING IN BED WITH FAMILY AT BEDSIDE. SEE ASSESSMENT AND VITALS FOR OTHER DETAILS. CALL LIGHT WITHIN REACH, WILL CONTINUE PLAN OF CARE
[2018-06-21 04:09] LABS: HEMATOCRIT 22.4 % (42.0-52.0); HEMOGLOBIN 7.2 gm/dL (14.0-18.0); MCH 27.3 pg (26.0-34.0); MCHC 32.2 g/dL (28.0-37.0); MCV 84.8 fL (80.0-100.0); MPV 8.5 fl. (7.2-11.1); RBC 2.64 mil/uL (4.50-6.00); RDW-CV 17.6 % (10.5-14.5); WBC 11.5 thou/uL (4.0-11.0)
[2018-06-21 04:50] LABS: ALBUMIN 1.4 g/dL (3.4-5.0); CALCIUM 8.4 mg/dL (8.5-10.1); MAGNESIUM 2.2 mg/dL (1.8-2.4); POTASSIUM 5.2 mmol/L (3.5-5.1); TOTAL BILIRUBIN 1.4 mg/dL (<0.1-1.0)
[2018-06-21 05:03] LABS: CREATININE 7.1 mg/dL (0.6-1.3)
--- NOTE | 2018-06-21 05:22 | NUR ---
ASSESSMENT: PT REMAIN ALERT AT SHIFT CHANGE, DROWSY, CALM AND SOME WHAT COOPERATIVE. LEFT JUGULAR TRIPLE LUMEN IJ INTACT WITH ANTIBX'S AND D5W INFUSING WITHOUT DIFFICULTY. LOW GRADE TEMP NOTED WITH MAX TEMP BEING 100.1 BLOOD SUGARS IN THE 80'S. DID TOLERATE A BOX LUNCH FOR A HS SNACK. SITTER AT THE BEDSIDE. PT ATTEMPTS TO COOPERATE WITH SIMPLE COMMANDS. DID HAVE 2 SOFT, NON-ODEROUS STOOLS, C-DIFF SENT. L FA FISTULA +BRUIT AND +THRILL. LE NOTED WITH DRESSINGS INTACT. TOES AURELIO EXPOSED AND NECROTIC. PT WILL ATTEMPT TO SCRATCH AT LEFT LOWER LEG WOUND. SEVERAL PICS ON CHART OF THE WOUNDS. SR PER MONITOR. BP RUNS SBP 100 AND DBP 60-70'S. SEE AM LABS. PT IS DUE TO HAVE DIALYSIS TODAY. K+ 5.2, BUN 40, CREAT 7.1 WBC 11.5 PT DENIES PAIN. DOES REQUEST ICE CHIPS FREQUENTLY. POOR PROGRESS TOWARDS DC GOALS. WILL CONTINUE TO MONITOR.
[2018-06-21 07:30] VITALS: BP 103/54
--- NOTE | 2018-06-21 08:03 | OP ---
[facility] [address] [place] [address] OPERATIVE REPORT Name: RUDOLPH AGUILAR JR Room: [address] IN .R.#: [id number] Admission: 06/14/18 Attend Phys: Alejandrina Quick MD Discharge: Date of : 81 Report #: [id number] THIS REPORT FOR: //name// CC: [facility] physician/PCP Alejandrina Quick DATE OF SERVICE: 06/20/2018 PREOPERATIVE DIAGNOSES: 1. Hypoglycemia. 2. Need for IV access. 3. Critically ill. POSTOPERATIVE DIAGNOSES: 1. Hypoglycemia. 2. Need for IV access. 3. Critically ill. PROCEDURE: internal jugular triple lumen catheter placement at the bedside. SURGEON: Abdulaziz Barragan MD HALL MONITOR: None. ANESTHESIA: Local. COMPLICATIONS: None. ESTIMATED BLOOD LOSS: Minimal. INDICATIONS: The patient is well known to us. He is currently in the hospital with ischemic lower extremities. There are no further revascularization options available to him. He presented with hypoglycemia and confusion. He currently has encephalopathy. He has been unable to consent to lower extremity amputations. He currently has dry gangrene. He pulled out his central line earlier today in his confused state. I have been asked to replace this today. Informed consent was implied given the emergent nature of the procedure and the patient's inability to consent. He does not have the DPOA. DESCRIPTION OF PROCEDURE: The patient at the bedside was prepped and draped his left neck in the usual sterile fashion. I infused 10 mL of 1% lidocaine into the area of access. I accessed the internal jugular vein without difficulty. I used a Seldinger technique to exchange out for a dilator and then the central line. All 3 ports flushed without difficulty. I secured the line to the neck using the silk suture which was included in the kit. [place] [address] OPERATIVE REPORT Name: RUDOLPH AGUILAR JR Room: [address]#: [id number] Admission: 06/14/18 Attend Phys: Alejandrina Quick MD Discharge: Date of : 81 Report #: [id number] procedure well. The catheter was dressed in standard fashion. A portable chest x-ray is pending. <ELECTRONICALLY SIGNED> By: Corbin Brewer DO 06/21/18 0803 [id number] 1923Abdulaziz Barragan MD /nt
--- NOTE | 2018-06-21 10:49 | NUR ---
LABORATORY EQUIPMENT INSTALLER SPOKE TO CHUY WITH [facility] TRANSFER TEAM TO DISCUSS [facility]'S ABILITY TO ACCEPT THE PATIENT. CHUY INFORMS THAT 'THERE IS CURRENTLY NO BED AVIALABLE AT THIS TIME, BUT WHEN A BED BECOMES AVAILABLE AT EITHER [facility] OR [place] THE TRANSFER TEAM WILL RETURN CALL'. RN IN-CHARGE OF THE PATIENT INFORMED OF THIS INFO. CM WILL REMAIN AVAILABLE TO ASSIST AND FOLLOW NEEDED.
--- NOTE | 2018-06-21 11:09 | NUR ---
ASSESSMENT COMPLETE. PT VERY DROWSY THIS AM. REACTS TO VOICE AND ABLE TO COMMUNICATE FOR SHORT TIME BEFORE FALLING BACK ASLEEP. PT ABLE TO TALK TO DR GAN AT BEDSIDE THIS AM, HOWEVER ONCE TELE PSYCH WAS CONSULTED TO DECIDE IF PT IS CAPACITATED TO MAKE DECISIONS HE WAS UNABLE TO STAY AWAKE. TELE PSYCH RECOMMENDED THAT PT IS NOT CAPACITATED AT THIS TIME AND CAN CONSULT AGAIN LATER TODAY IF PT ABLE TO WAKE UP. PT CURRENTLY IN DIALYSIS. DIALYSIS NURSE NOTIFIED OF FISTULA LOOKING LARGE AND SHE SATES THE FISTULA IS NORMAL FOR HIM. THRILL PALPATED AND BRUIT HEARD. PT INCONT OF STOOL THIS AM X2. PT STILL HAVING DIARRHEA, CDIFF PENDING AT THIS TIME. LEFT IJ FLUSHES AND DRAWS WITHOUT DIFFICULTY. IV ABX GIVEN THIS AM. WILL CONTINUE PLAN OF CARE.
[2018-06-21 16:00] VITALS: BP 109/43
[2018-06-21 16:37] LABS: BE 4.8 mmol/L (-2 to +3); HCO3 28.5 mmol/L (22.0-26.0); PCO2 38.6 mmHg (35.0-45.0); PO2 98.4 mmHg (75.0-100.0); pH 7.486 (7.340-7.450)
--- NOTE | 2018-06-21 17:29 | NUR ---
PT ALERT AND ORIENTED X4 THIS AFTERNOON. TELEPSYCH CONSULTED AND DEEMED PT COMPETENT TO MAKE MEDICAL DECISIONS. CASE MANAGEMENT ABLE TO GET DPOA PAPERWORK COMPLETED. VASCULAR NOTIFIED AND WILL LET US KNOW WHEN PROCEDURE CAN BE SCHEDULED. PT EATING AT BEDSIDE. DRESSING TO BLE CHANGED. PT DENIES PAIN AND N/V AT THIS TIME. SEE ASSESSMENT AND VITALS FOR OTHER DETAILS. CALL LIGHT WITHIN REACH, WILL CONTINUE PLAN OF CARE
[2018-06-21 20:00] VITALS: BP 100/51
[2018-06-22] VITALS (8 sets, daily range): BP systolic 80–115; BP diastolic 42–62
[2018-06-22 04:40] LABS: CALCIUM 8.5 mg/dL (8.5-10.1); POTASSIUM 4.5 mmol/L (3.5-5.1)
[2018-06-22 04:42] LABS: CREATININE 5.5 mg/dL (0.6-1.3)
--- NOTE | 2018-06-22 05:22 | NUR ---
ASSUMED PATIENT CARE AT 1900. PATIENT ALERT AND ORIENTED X 3 OR MORE. IV PATENT IN LEFT IJ. MINOR COMPLAINTS OF PAIN IM HIS LEGS, CONTROLLED WITH OOOOOOOOOOOV PAIN MEDICATIONS. ONE TO ONE SITTER IN PLACE. DRESSINGS TO BILATERAL LEGS REINFORCE/ CHANGED SEVERAL TIMES PATIENT ATTEMPTS TO PICK AT THE SKIN THAT IS FALLING OFF. SURGERY SCHEDULED FOR RIGHT AKA THIS COING A COIN COLLECTOR AND HOURLY ROUNDING COMPLETED CHARTED
--- NOTE | 2018-06-22 17:18 | NUR ---
SHIFT NOTE - PT OFF UNIT THIS AM FOR RIGHT ABOVE KNEE AMPUTATION. PT RETURNED WITH SAME AND PREVENAR WOUND VAC IN PLACE. SEE ORDERS. GEROPSYCHOLOGIST PUMP IN PLACE. FAMILY PRESENT AT BEDSIDE. WILL CONTINUE TO MONITOR.
[2018-06-23] VITALS (7 sets, daily range): BP systolic 88–125; BP diastolic 39–84
[2018-06-23 04:55] LABS: HEMATOCRIT 20.1 % (42.0-52.0); MCH 28.7 pg (26.0-34.0); MCV 84.6 fL (80.0-100.0); MPV 8.2 fl. (7.2-11.1); RBC 2.37 mil/uL (4.50-6.00); RDW-CV 19.1 % (10.5-14.5); WBC 11.5 thou/uL (4.0-11.0)
[2018-06-23 05:01] LABS: CALCIUM 8.3 mg/dL (8.5-10.1); POTASSIUM 5.4 mmol/L (3.5-5.1)
[2018-06-23 05:02] LABS: CREATININE 6.9 mg/dL (0.6-1.3)
[2018-06-23 05:16] LABS: HEMOGLOBIN 6.8 gm/dL (14.0-18.0)
--- NOTE | 2018-06-23 06:13 | NUR ---
ASSUMED PATIENT CARE AT 1900. PATIENT HAS KEY OPERATOR FOR PAIN MANGEMENT. CUSTOM BOOKBINDER AND HOURLY ROUNDING COMPLETED DOCUMENTED. WOUND VAC IN PLACE ON RIGHT STUMP, DRAINING SERROSANGEOUS FLUID, ONE CARTRIDGE CHANGED. NO SITTER AT BEDSIDE. BED ALARM ON AND PATIENT VERBALIZES UNDERSTANDING OF FALL PRECAUTIONS.
--- NOTE | 2018-06-23 08:00 | NUR ---
UPON ENTERING ROOM IV TUBING TO SENIOR SOFTWARE TEST ENGINEER FOUND SITTING ON THE BED. PT DENIES KNOWING HOW IT HAPPENED. IVF HAD BEEN INFUSING DURING BEDSIDE REPORT
--- NOTE | 2018-06-23 15:00 | NUR ---
PT TO DIALYSIS VIA CART
--- NOTE | 2018-06-23 16:42 | NUR ---
UPON ENTERING PT ROOM IV TUBING AGAIN FOUND DISCONNECTED FROM CENTRAL LINE. PT ADMITS TO DISCONNECTING IV. PT INSTRUCTED TO NOT TOUCH MEDICAL EQUIPMENT. PT EDUCATED ON THE DANGERS OF SEPSIS FROM CONTAMINATED LINES.
[2018-06-23 16:49] LABS: HEMATOCRIT 20.5 % (42.0-52.0)
[2018-06-23 16:51] LABS: HEMOGLOBIN 6.9 gm/dL (14.0-18.0)
--- NOTE | 2018-06-23 17:37 | NUR ---
PT RESTING IN BED THROUGHOUT SHIFT. PT OFTEN REFUSES REPOSITIONING. PT EDUCATED ON PRESSURE ULCER PREVENTION. PT CONTINUES TO PICK AT WOUNDS. PT ALSO EDUCATED ON INFECTION PREVENTION. PT GIVEN BLOOD TRANSFUSION THIS AFTERNOON. TOLERATED WELL. PT USES GAS ENGINE OPERATOR COMPRESSORS PUMP APPROPRIATELY. PAIN WELL CONTROLLED. PT INSTRUCTED NOT TO UNHOOK IV TUBING. POOR APPETITE. PT TOLERATING PO FLUIDS WELL. PT REQUESTING TO SIT ON SIDE OF BED AND ASSISTED. PT UNABLE TO TRANSFER TO [facility] AT THIS TIME
[2018-06-24] VITALS: BP 91/41
[2018-06-24 04:26] VITALS: BP 79/43
[2018-06-24 05:20] LABS: HEMATOCRIT 24.4 % (42.0-52.0); MCH 27.5 pg (26.0-34.0); MCHC 32.7 g/dL (28.0-37.0); MCV 84.2 fL (80.0-100.0); MPV 8.3 fl. (7.2-11.1); RBC 2.9 mil/uL (4.50-6.00); RDW-CV 17.9 % (10.5-14.5); WBC 12.6 thou/uL (4.0-11.0)
[2018-06-24 05:43] LABS: ALBUMIN 1.1 g/dL (3.4-5.0); CALCIUM 8.2 mg/dL (8.5-10.1); MAGNESIUM 1.9 mg/dL (1.8-2.4); POTASSIUM 4.7 mmol/L (3.5-5.1); TOTAL BILIRUBIN 1.6 mg/dL (<0.1-1.0)
[2018-06-24 05:48] LABS: CREATININE 5.3 mg/dL (0.6-1.3)
--- NOTE | 2018-06-24 06:00 | NUR ---
ASSUMED PATIENT CARE AT 1900. PATIENT ALERT AND ORIENTED TIMES FOUR MOST OF THE TIME. REAMINS DROWSY. TRIPLE LUMEN IJ WILL ONLY DRAW FROM ONE PORT. 2 PORTS ARE PATENT TO FLUIDS. ONE PORT IS COMPLETEY UNUSABLE. PATIENT STILL PICKING AT LEFT LEG. RIGHT LEG REAINS IWRAPPED AND IN AN IMMOBILIZER. WOUND VAC IN PLACE. NO COMPLAINTS OF PAIN OR DISCOMFORT VERBALIZED BY PATIENT, ENDOSCOPY SUPPORT SPECIALIST PUMP REMAINS IN PLACE AND ACTIVE, PATIENT VERBALIZES UNDERSTANDING OF THE USAGE OF STIVEN. APPLIANCE PAINTER AND REFINISHER AND HOURLY ROUNDING COMPLETED DOCUMENTED.
[2018-06-24 12:56] VITALS: BP 100/55
[2018-06-24 16:58] VITALS: BP 102/53
[2018-06-24 20:27] LABS: HEMATOCRIT 22.9 % (42.0-52.0); HEMOGLOBIN 7.5 gm/dL (14.0-18.0)
[2018-06-24 23:56] VITALS: BP 78/39
[2018-06-25 03:54] VITALS: BP 111/73
--- NOTE | 2018-06-25 05:36 | NUR ---
PT SLEPT ON AND OFF THIS SHIFT. ASSESSMENT DOCUMENTED. MEDS GIVEN PER E-MAR. IJ PATENT. PT ATTACHED TO LOG CUT OFF SAWYER PUMP. PTS BP LOW THIS SHIFT, DR NOTIFED, FLUIDS INFUSING PER DR ORDERED AFTER ORDER VERIFIED. ANXIETY MEDS GIVEN PER E-MAR PER PT PATIENT REQUEST. PT STARTED HALLUCINATING AFTER ATIVAN GIVEN, TALKING TO PEOPLE IN ROOM THAT WERE NOT THERE. PT HAD BM HIS SHIFT. PT SCRATCHING AT LEG THIS SHIFT, PT REMINDED NOT TO SCRATCH. PT SAT ON SIDE OF BED THIS SHIFT. WILL CONTINUE WITH PLAN OF CARE.
[2018-06-25 12:33] VITALS: BP 117/46
[2018-06-25 16:52] VITALS: BP 101/58
--- NOTE | 2018-06-25 18:43 | NUR ---
ASSESSMENT COMPLETE. PT ALERT MOST OF THE DAY. BROTH MIXER PUMP DC'D, NO PRN PAIN MEDICATIONS NEEDED. PT DENIES N/V. EATING ABOUT 50% OF MEALS. DRESSING TO RIGHT IJ CHANGED, CAPS CHANGED. PT IS SINUS TACH ON MONITOR. BLOOD PRESSURE STABLE. EDEMA NOTED TO BILAT ARMS. PT IS FALL RISK, BED ALARM ON. SEE ASSESSMENT AND VITALS FOR OTHER DETAILS. CALL LIGHT WITHIN REACH, WILL CONTINUE PLAN OF CARE
[2018-06-25 20:00] VITALS: BP 109/51
[2018-06-26] VITALS: BP 99/42
[2018-06-26 04:00] VITALS: BP 86/45
--- NOTE | 2018-06-26 05:19 | NUR ---
PT SLEPT ON AND OFF THIS SHIFT. ASSESSMENT DOCUMENTED. MEDS GIVEN PER E-SEP. IJ PATENT. PAIN MEDS GIVEN PER E-SEP. PT KEPT PICKING AT WOUNDS ON LEFT LEG, PT REMINDED SEVERAL TIMES NOT TO. PT MESSING WITH DRESSING ON RLE, PT REMINDED TO LEAVE THE DRESSINGS ALONE. PT INCONTINENT OF BOWEL THIS SHIFT. WILL CONTINUE WITH PLAN OF CARE.
[2018-06-26 09:45] VITALS: BP 105/70
[2018-06-26 12:40] VITALS: BP 111/68
[2018-06-26 15:03] VITALS: BP 101/50; BP 85/60; BP 98/48; BP 98/65
--- NOTE | 2018-06-26 16:00 | NUR ---
SHIFT NOTE - GIVEN 1 UNIT PRBC PER PROTOCOL. IJ REMAINS PATENT. ACCU CHECK Q4HR. WILL CONTINUE TO MONITOR.
[2018-06-27 00:19] VITALS: BP 80/34
[2018-06-27 04:00] VITALS: BP 81/41
--- NOTE | 2018-06-27 05:04 | NUR ---
PT SLEPT ON AND OFF THIS SHIFT. MOVING ABOUT IN BED, SITTING AT SIDE OF BED WITH SUPERVISION AT TIMES FOR COMFORT. RSTUMP DRSG CDI WITH WOUND VAC ON AND OPERATING. RLE WITH OPEN AREAS, PT SCRATCHING LEG-REMINDED TO NOT SCRATCH. LIJ SL, ABX GIVEN ORDERED. TELE ST. ACCUCHECK F0HRHPI WNL. AM LABS. PT TURNED Q2HR AND PRN FOR SKIN CARE AND COMFORT PT WOULD ALLOW. EATING HARD CANDY OFF AND ON. PO PAIN MED GIVEN AT HS WITH GOOD RESULT. CALL LITE IN EASY REACH, BED ALARM ON FOR SAFETY.
[2018-06-27 12:35] VITALS: BP 96/52
[2018-06-27 15:54] VITALS: BP 104/60
--- NOTE | 2018-06-27 16:35 | NUR ---
ASSESSMENT COMPLETE. PT ALERT AND ORIENTED X4. PT IS UP IN CHAIR WITH CR LIFT. PT USED BEDPAN NEEDED, INCONT ONCE DURING THE DAY. PREVENA TO RIGHT AKA. PT HAS LEFT IJ. ZOSYN GIVEN NEEDED. PAIN MEDICATION GIVEN ONCE. PT IS SINUS TACH ON TELE MONITOR. 97% ON ROOM AIR AND DENIES SOA. PT DENIES N/V. TOLERATING MEALS. FISTULA TO LEFT ARM. CHAIR ALARM ON. SEE ASSESSMENT AND VITALS FOR OTHER DETAILS. CALL LIGHT WITHIN REACH, WILL CONTINUE PLAN OF CARE
[2018-06-28] VITALS: BP 116/53
[2018-06-28 04:00] VITALS: BP 125/58
--- NOTE | 2018-06-28 05:13 | NUR ---
PATIENT SITTING IN RECLINER AT BEGINNING OF SHIFT. PT ALERT/ORIENTED X4 BUT CONFUSED/FORGETFUL. PT REFUSED TO ALLOW FOOD TO BE REMOVED FROM SIDE TABLE THAT HAD BEEN SITTING OUT ALL DAY. ATTEMPT TO CLEAN ROOM DISTURBED PT AND HE ASKED THAT WE LEAVE HIS STUFF ALONE. PT REFUSED TO ALLOW PILLOW OR WEDGE TO BE PLACED UNDERNEATH HIM WHILE IN RECLINER. PT WITH LEGS ELEVATED. PREVENO WOUND VAC IN PLACE ON RT STUMP, NO AIR LEAKS NOTED AND SUCTIONING IS NOTED. PT WITH MULTIPLE OPEN SORES ON HANDS AND LT LEG. PT DISCOURAGED FROM PICKING AT WOUNDS. PT WAS NOTED EATING SKIN HE HAD PICKED OFF OF LEG. PT HAD BOWEL MOVEMENT WHILE IN RECLINER AND WAS PLACED BACK IN BED WITH USE OF CR LIFT BEFORE BEING CLEANED UP AND BARRIER CREAM APPLIED. BACK SIDE OF SKYLAR AREA WITH SKIN BREAKDOWN. PT TURNED FROM SIDE THE REST OF THE NIGHT. PT WITH TRIPLE LUMAN PICC LINE IN LT JUGULAR, SALINE LOCKED. FISTULA IN LT ARM WITH EDEMA. PT ON COST MANAGER IN . FREQUENTLY USED ITEMS AND CALL LIGHT WITHIN REACH. SIDERAILS UPX4 AND BED ALARM ON. FREQUENT OBSERVATIONS MADE. PT MADE NPO AT MIDNIGHT FOR LT LEG AMPUTATION TODAY. PT REQUESTED PAIN MEDICATIONS X2 AND HYDDROCODONE 1 TAB GIVEN. PT ABLE TO RETURN TO SLEEP AFTER RECEIVING MEDS. WILL CONTINUE TO MONITOR.
--- NOTE | 2018-06-28 08:00 | OP ---
[facility] [address] [place] [address] OPERATIVE REPORT Name: RUDOLPH AGUILAR JR Room: [address] IN [facility]#: [id number] Admission: 06/14/18 Attend Phys: Alejandrina Quick MD Discharge: Date of : 81 Report #: [id number] THIS REPORT FOR: //name// CC: [facility] physician/PCP Alejandrina Quick DATE OF SERVICE: 06/22/2018 PREOPERATIVE DIAGNOSIS: Bilateral lower extremity gangrene. POSTOPERATIVE DIAGNOSIS: Bilateral lower extremity gangrene. PROCEDURE: Right above knee amputation. SURGEON: Abdulaziz Barragan MD ASSISTANTS: 1. Freddy Yuen. 2. romel Rehman. ANESTHESIA: General. COMPLICATIONS: None. ESTIMATED BLOOD LOSS: 200 mL. SPECIMEN: Includes right above knee amputation. INDICATIONS: The patient is a very pleasant 32-year-old -[place] male with end-stage renal disease, on dialysis and severe diabetes. He presents with progressive and worsening gangrene of his bilateral lower extremities. This has been going on for several weeks. At this point in time, his legs are non-salvageable. We plan for right above knee amputation today and likely left above-knee amputation next week. Informed consent was obtained from the patient with risks including but not limited to bleeding, infection, need for further surgery, pain, , heart attack, stroke or amputation. He understood these risks and was agreeable to proceed. DESCRIPTION OF PROCEDURE: The patient was taken to the OR and placed in supine position. After adequate general anesthesia was initiated, timeout was performed. The patient's right leg was circumferentially prepped and draped in usual sterile fashion. We created a fishmouth incision just above the knee. Sharp and blunt dissections were carried down through the soft tissues down to the femur. We divided the femoral artery and femoral vein with ties. We then divided the femur with a bone saw. We irrigated the wound bed with antibiotic saline. We closed the wound in multiple layers using 2-0 Vicryl, 3-0 [place] [address] OPERATIVE REPORT Name: RUDOLPH AGUILAR JR Room: [address]#: [id number] Admission: 06/14/18 Attend Phys: Alejandrina Quick MD Discharge: Date of : 81 Report #: [id number] meliton for the skin. Incision was dressed with Prevena wound VAC. The patient tolerated the procedure well and was taken alert and awake to recovery room in good condition. All needle, instrument counts were correct at the end of the case. <ELECTRONICALLY SIGNED> By: Corbin Brewer DO 06/28/18 0800 1152 [id number] Barragan MD /nt
[2018-06-28 09:30] VITALS: BP 105/69
--- NOTE | 2018-06-28 13:40 | NUR ---
06/22 PT ALERT, ORIENTED AND ABLE TO MAKE MEDICAL DECISIONS. PT CONSENTS TO AMPUTATION AND HAD RIGHT AKA DONE. 06/28 PT SCHEDULED FOR LEFT AKA TODAY. CASE MGT TO CONTINUE TO FOLLOW.
[2018-06-28 15:33] LABS: HEMATOCRIT 23.3 % (42.0-52.0); HEMOGLOBIN 7.7 gm/dL (14.0-18.0)
--- NOTE | 2018-06-28 17:07 | NUR ---
PT.'S MOTHER AND AUNT REQUESTED TO SPEAK WITH CM. THIS CM SPOKE WITH THEM IN ROOM. PT.IN DIALYSIS AFTER HAVING SURGERY TODAY. THEY WANTED TO DISCUSS DISCHARGE PLANS. THEY ARE FINE WITH HIM GOING TO INPT.REHAB IF HE WOULD QUALIFY. IF HE DOES NOT THEY WOULD LIKE CM TO CHECK AT [facility] IN [place] FOR SNF BED. MOTHER SAID SHE HAS SOME FAMILY/FRIENDS THAT WORK THERE. DISCUSSED IT WILL BE AWHILE BEFORE HE CAN GET HIS PROTHESIS'. HE WILL NEED TO LEARN TO DO TRANSFERS WITH SLIDE BOARD TO AND UPPER EXTREMITY STRENGHTHENING. DISCUSSED HE COULD TRANSFER TO A [facility] IN [place] IF NEEDED. CM WILL FOLLOW AND DISCUSS WITH PT.
--- NOTE | 2018-06-28 18:57 | NUR ---
ASSUMED CARE OF PT AT 0700, PT IN BED RESTING WITH EYES CLOSED. ASSESSMENT COMPLETE, PT TRANSFERRED TO SURGERY AT APPX 1210 FOR LLE AMPUTATION. THIS NURSE CALL DIALYSIS NURSE TO INFORM OF SURGERY. PT STARTED DIALYSIS THIS AFTERNOON AT 1600, REMAINS IN DIAYSIS. ABT AT 1700 WILL BE GIVEN ONCE DIALYSIS IS COMPLETE, THIS NURSE WILL INFORM ON COMING SHIFT OF PT NEEDS.
[2018-06-28 20:00] VITALS: BP 110/50
[2018-06-29 00:30] VITALS: BP 90/49
[2018-06-29 04:50] VITALS: BP 90/52
--- NOTE | 2018-06-29 06:11 | NUR ---
PATIENT BACK FROM DIALYSIS AT BEGINNING OF SHIFT. PT ALERT BUT DROWSY. PT REQUESTED PAIN MEDICATION, HYDROCODONE 1 TAB GIVEN. PT SLEPT THE REST OF THE NIGHT. ATTEMPTS MADE TO GET PATIENT TO LAY BACK AND GET OFF HIS BUTTOCKS BUT PT INSISTED ON SITTING UPRIGHT IN BED, REFUSED TO HAVE PILLOW OR WEDGE PLACED UNDER HIM; EDUCATION GIVEN. PT WITH BREAKDOWN ON BUTTOCKS. PT ALSO HAS BREAKDOWN ON HANDS. PT WITH TRIPLE LUMAN PICC IN LT IJ. ABLE TO DRAW/FLUSH FROM BROWN PORT BUT NOT DRAW FROM OTHER TWO. PT WITH WOUND VAC ON LT STUMP, DSG C/D/I AND WOUND VAC WORKING. WOUND VAC HAS BEEN REMOVED FROM RT STUMP. PT WITH MOD BOWEL MOVEMENT DURING THIS SHIFT. ONE HYDROCODONE GIVEN WITH AM MEDICATIONS. FREQUENTLY USED ITEMS AND CALL LIGHT WITHIN REACH. SIDERAILS UPX4 AND BED ALARM ON. WILL CONTINUE TO MONITOR.
[2018-06-29 06:41] LABS: HEMATOCRIT 21.8 % (42.0-52.0); HEMOGLOBIN 7.1 gm/dL (14.0-18.0); MCH 27.7 pg (26.0-34.0); MCHC 32.8 g/dL (28.0-37.0); MCV 84.3 fL (80.0-100.0); MPV 8.7 fl. (7.2-11.1); RBC 2.58 mil/uL (4.50-6.00); RDW-CV 17.6 % (10.5-14.5); WBC 10.7 thou/uL (4.0-11.0)
[2018-06-29 07:09] LABS: CALCIUM 7.9 mg/dL (8.5-10.1); POTASSIUM 4.4 mmol/L (3.5-5.1)
[2018-06-29 07:12] LABS: CREATININE 5.8 mg/dL (0.6-1.3)
[2018-06-29 07:20] VITALS: BP 140/69
[2018-06-29 11:49] VITALS: BP 94/54
--- NOTE | 2018-06-29 12:05 | PATH ---
[address] [address] PATHOLOGY RPT PROCEDURE Name: RUDOLPH AGUILAR JR Room: [address] IN M.R.#: [id number] Admission: 06/14/18 Date of : 81 Discharge: Report #: [id number] Path Case #: [id number] [facility] Accession Number: [id number] . 01 Material submitted: . RIGHT LEG, MID THIGH TO TOES . 01 Clinical history: . Ischemic, gangrene right leg . 02 Diagnosis: Right leg, mid thigh to toes, above the knee amputation: - Benign right lower extremity with extensive necrosis of foot tissues including toes and phalangeal bones and with severe calcifying arteriosclerosis of anterior and posterior tibial arteries, dorsalis pedis and femoral artery. See comment. (SAVI:kristin; 06/28/2018) MBR/06/28/2018 . 02 Comment: In a section of the proximal soft tissue surgical margin (A1), there is noted to be a small vessel showing acute thrombophlebitis. (SAVI:kristin; 06/28/2018) . 02 Electronically signed: . Pranav Aguilar MD, Pathologist NPI- [id number] . 01 Gross description: . Received in a red biohazard bag, labeled "LindenZeke gutierrez JRin, right leg, mid thigh to toes", is an above the knee amputation of right leg measuring 45 cm from proximal skin resection margin to heel and 23 cm from the heel to distal tip of hallux. Extending above the soft tissue resection margin is a segment of femur measuring 3.0 cm in length and 4.2 x 3.0 cm. The femoral vessel margin is filled with mahoney-white calcified material. The skin, underlying soft tissue and bone margins appear viable. All the digits are present and are dark brown, necrotic and mummified. The dorsal skin of the foot is thickened. The leg shows multiple islands of mahoney-white exudate and is edematous. Sectioning through the digits show a necrotic soft tissue that extends to the underlying bone. The anterior vessels shows luminal thickening with the posterior filled with calcified material that occupies the lumen up to 60%. Nuclear Radiologist tissue is submitted as follows: . A1. Proximal skin resection margin and underlying soft tissue A2. Proximal bone margin, bone marrow after decalcification. A3. Proximal vascular margin, femoral vessel after decalcification A4. Edematous [place] [address] PATHOLOGY RPT PROCEDURE Name: RUDOLPH AGUILAR JR Room: [address] IN ..#: [id number] Admission: 06/14/18 Date of : 81 Discharge: Report #: [id number] Path Case #: [id number] A5. Cross section hallux after decalcification. A6. Vasculature (anterior = inked blue, posterior = black and dorsalis pedis) A7. Cross section of second digit, after decalcification (SWS; 06/26/2018) SHS/SHS . 02 Pathologist provided ICD-10: I96, I70.201 . 02 CPT . 144275, [id number] Specimen Comment: A courtesy copy of this report has been sent to Specimen Comment: [phone], . Specimen Comment: Report sent to / DR PEÑALOZA Specimen Comment: A duplicate report has been generated due to demographic updates. Performed at: 01 [facility] [address], [place] [id number] MD Aaron Lanza MD Phone: [phone] Performed at: 02 [facility] [address], [place], [place] [id number] MD Pranav Aguilar MD Phone: [phone]
--- NOTE | 2018-06-29 15:53 | NUR ---
WOUND CARE NOTE: CONSULT RECEIVED FOR SACRUM WOUND PATIENT PRESENTS WITH AN ULCERATION TO HIS SACRAL REGION. THIS MEASURES APPROXIMATELY 8X17X0.1. WOUND EDGES ARE PINK, MOIST. CENTER OF WOUND BED WITH TYLER, ADHERENT SLOUGH TISSUE. SKYLAR-WOUND MACERATED. THERE ARE MULTIPLE OTHER AREAS OF BREAKDOWN TO BILATERAL BUTTOCKS AND POSTERIOR, UPPER THIGHS. AFTER CLEANSING ALL WOUNDS. APPLIED Z-GUARD TO ASSIST WITH WOUND HEALING. TURNED PATIENT TO RIGHT SIDE WITH WEDGE AND PILLOW. EDUCATED PATIENT ON IMPORTANCE OF KEEPING OFF WOUND. PATIENT STATES 'I KNOW, I CAN FEEL IT'. ALSO WHEN ENTERING ROOM PATIENT HAD A MEDIUM SIZED BASKET FULL OF CANDY HE WAS EATING. ALSO HAS MULTIPLE PIECES OF CANDY LOOSE IN BED. REMOVED THESE. RECOMMEND TURN Q2 HOURS LIMIT HOB <30 DEGREES KEEP OFF WOUNDS Z-GUARD BID AND PRN WAFFLE CUSHION WHEN IN CHAIR (ALREADY IN ROOM) LOW AIR LOSS MATTRESS (ON ORDER)
--- NOTE | 2018-06-29 16:07 | NUR ---
ASSESSMENT COMPLETE. PT ALERT AND ORIENTED X4. PRN PAIN MEDICATION GIVEN TWICE. PT TURNED Q2 FOR SKIN INTEGRITY. WOUND NURSE CONSULTED AND SAW PT, NEW ORDERS IN INTERVENTION. LOW AIRLOSS MATTRESS ORDERED. PT IS NON COMPLIANT AT TIMES WITH TURNS, AND SITS UP ON BOTTOM, EDUCATION GIVEN. PT/OT ORDERED. TOLERATING RENAL DIET. LEFT IJ, ONLY BROWN PORT DRAWS AND FLUSHES. SEE ASSESSMENT AND VITALS FOR OTHER DETAILS. CALL LIGHT WITHIN REACH, WILL CONTINUE PLAN OF CARE
[2018-06-29 16:42] VITALS: BP 110/56
--- NOTE | 2018-06-29 16:50 | NUR ---
ORDERS FOR PT/OT EVALS. THEY WILL SEE PT.TOMORROW. MOST LIKELY PT.WILL NEED SNF THAT HAS HEMO DIALYSIS IN ITS FACILITY UNTIL HE IS ABLE TO TRANSFER TO CHAIR WITH SLIDE BOARD, HE WOULD NOT BE ABLE TO GET FROM TO [facility] FOR DIALYSIS. WILL DISCUSS THESE FACILITIES WITH PT.TOMORROW.
[2018-06-30] VITALS: BP 105/70
[2018-06-30 03:48] VITALS: BP 96/59
[2018-06-30 07:51] LABS: HEMATOCRIT 20.5 % (42.0-52.0); MCHC 32.9 g/dL (28.0-37.0); MPV 7.9 fl. (7.2-11.1); RBC 2.41 mil/uL (4.50-6.00); RDW-CV 17.5 % (10.5-14.5); WBC 9.9 thou/uL (4.0-11.0)
[2018-06-30 08:00] VITALS: BP 98/60
[2018-06-30 08:03] LABS: HEMOGLOBIN 6.8 gm/dL (14.0-18.0)
[2018-06-30 08:07] LABS: CALCIUM 7.9 mg/dL (8.5-10.1); POTASSIUM 4.7 mmol/L (3.5-5.1)
[2018-06-30 08:10] LABS: CREATININE 7.4 mg/dL (0.6-1.3)
--- NOTE | 2018-06-30 09:50 | OP ---
[facility] [address] [place] [address] OPERATIVE REPORT Name: RUDOLPH AGUILAR JR Room: [address] IN [facility]#: [id number] Admission: 06/14/18 Attend Phys: Alejandrina Quick MD Discharge: Date of : 81 Report #: [id number] THIS REPORT FOR: //name// CC: [facility] physician/PCP Alejandrina Quick DATE OF SERVICE: 06/28/2018 PREOPERATIVE DIAGNOSIS: Gangrene of the left lower extremity. POSTOPERATIVE DIAGNOSIS: Gangrene of the left lower extremity. OPERATION: Left above knee amputation. SURGEON: Corbin Brewer DO POULTRY SCIENTIST: , ORT ANESTHESIA: General. ESTIMATED BLOOD LOSS: 250 mL. FLUIDS: 200 crystalloid, 1 unit of PRBCs. SPECIMENS: Left leg. COMPLICATIONS: None. FINDINGS: The patient had excellent bleeding at the amputation level, reapproximated well without undue tension. CLINICAL HISTORY: The patient is a 32-year-old man with end-stage renal disease, peripheral vascular disease with progressive gangrene of the bilateral lower extremities. He previously underwent right above knee amputation and now is needed a left above-knee amputation. He also has a history of polysubstance abuse, which could be precipitating to his advanced ischemic changes. DETAILS OF PROCEDURE: After informed consent was obtained, the patient was taken to the operating room and placed on the OR bed in the supine position. He was administered general anesthesia by the Anesthesia team. Left lower extremity was prepped and draped in the usual sterile fashion. Full timeout was performed identifying correct patient and procedure. Next, standard fishmouth incision was made along the left upper leg just above the knee. Dissection was carried down through skin and subcutaneous tissue, both sharply and with electrocautery. The femur was then circumferentially mobilized. The periosteal elevators were used to elevate the periosteum [id number] OPERATIVE REPORT Name: JEFFRUDOLPH Randhawa JR Room: [address] IN [facility]#: [id number] Admission: 06/14/18 Attend Phys: Alejandrina Quick MD Discharge: Date of : 81 Report #: [id number] oscillating bone saw and transected the femur about 3 fingerbreadths proximal to the femoral condyle. I then isolated out the neurovascular bundle, ligated the femoral artery and vein with a 2-0 silk suture ligature. All hemostasis was controlled with electrocautery. The muscular compartments were all completely divided. Once the leg was amputated, it was passed off as specimen. I then irrigated the amputation site with antibiotic solution. Once ensured hemostasis, I then closed the wound in layers with 0 Vicryl and 2-0 Vicryl and then meliton in the skin and a Prevena bag was applied. All sponge, sharp and instrument counts were reported as correct x 2. He tolerated the procedure well and transferred to recovery in stable condition. <ELECTRONICALLY SIGNED> By: Corbin Brewer DO 06/30/18 0950 [id number] [id number] Brewer DO /nt
--- NOTE | 2018-06-30 11:28 | NUR ---
FAXED REFERRAL INFORMAITON TO [facility][phone] AND [facility] [phone]. THEY BOTH HAVE IN HOUSE DIALYSIS. PT.WILL NEED IN HOUSE DIALYSIS UNTIL CAN TRANSFER TO DIALYSIS [facility].
--- NOTE | 2018-06-30 14:52 | NUR ---
WOUND CARE NOTE: WAS REQUESTED PER VASCULAR TO ASSESS THE RIGHT AKA SITE. INCISION LINE WELL APPROXIMATED WITH DIANE. THERE IS AN AREA TO THE LATERAL ASPECT OF THE INCISION THAT IS DRAINING SEROSANGUINEOUS DRAINAGE. SKYLAR-WOUND TO MEDIAL AND LATERAL SIDES OF INCISION WITH EPIDERMAL LOSS. COULD BE STRIPPING FROM ADHESIVES. HOWEVER, TO THE MEDIAL/DISTAL ASPECT OF THE INCISION LINE IS DARK, SKIN MAY SLOUGH OFF IN THIS AREA TOO. APPLIED MULTIPLE LAYERS OF VASELINE GAUZE OVER SKIN LOSS TO ASSIST IN HEALING. COVERED INCISION LINE WITH AQUACEL AG AND COVERED WITH ABDS. SECURED WITH KERLIX AND MACHO WRAP. PATIENT TOLERATED DRESSING CHANGE WELL. NOTIFIED VASCULAR OF FINDINGS AND RECOMMENDING VASELINE GAUZE TO PARTIAL THICKNESS WOUND DURING DRESSING CHANGES.
--- NOTE | 2018-06-30 15:57 | NUR ---
[facility] LEFT CM A VM STATING THEY COULD NOT ACCEPT PT.TO THEIR FACILITY DUE TO HX OF SUBSTANCE ABUSE,NON COMPLIANCE AND IS A DAILY SMOKER. [facility] SAID THEIR D.O.N AND ASST.D.O.N NEED TO REVIEW INFORMATION BEFORE A DECISION IS MADE. AWAITING FAX FORM FROM [facility]. WILL FAX INFORMATION NEEDED TO THEM. THIS IS A A REQUIREMENT OF [facility] FOR PT.'S NEEDING IN HOUSE DIALYSIS. DISCUSSED POC WITH PT.AND MOTHER.
--- NOTE | 2018-06-30 16:58 | NUR ---
PT WENT TO DIALYSIS AT THIS TIME.
--- NOTE | 2018-06-30 20:20 | NUR ---
PT RETURNED PER BED FROM DIALYSIS ACCOMPANIED BY 3W STAFF. REQUESTING PAIN MED AND DINNER. DRSG OFF OF R STUMP, WOUND VAC ON AND OPERATING TO [facility]. Pj LOCKHART SL. POSITIONED IN BED FOR COMFORT. CALL LITE IN EASY REACH. TELE ON READING ST. LOW AIR LOSS MATTRESS OPERATIONAL. WILL CONTINUE TO MONITOR.
[2018-06-30 20:30] VITALS: BP 108/56
[2018-06-30 22:22] LABS: HEMATOCRIT 23.9 % (42.0-52.0); HEMOGLOBIN 7.9 gm/dL (14.0-18.0)
[2018-07-01] VITALS: BP 88/46
--- NOTE | 2018-07-01 01:16 | NUR ---
PT FOUND BY TECH WITH DRSG OFF OF RAKA AND BLOODY SKIN FROM R AKA WOUND HANGING FROM HIS MOUTH. PT EDUCATED ABOUT NOT TAKING OFF DRSG AND NOT PICKING AT WUONDS/SKIN DUE TO RISK OF INFECTION. PT STATES "IM NOT DOING THAT, I DIDNT BOTHER ANY OF IT. I DONT KNOW HOW THAT HAPPENED." INCISION AND R AKA WOUND CLEANSED AND REDRESSED, PICTURES TAKEN OF NEW AREAS WHERE SKIN HAD BEEN REMOVED. THIS IS THE THIRD TIME THE R STUMP HAS BEEN REDRESSED THIS SHIFT DUE TO PT APPARENTLY REMOVING DRSG. REFUSED TURN AT THIS TIME, EDUCATON GIVEN ON PREVENTING BREAKDOWN AND HEALING OF BREAKDOWN AND IMPORTANCE OF REPOSITIONING. PT STATES "I KNOW. BUT I DONT WANT TO RIGHT NOW." WILL CONTINUE TO MONITOR AND PROVIDE CARES NEEDED.
[2018-07-01 04:00] VITALS: BP 90/70
--- NOTE | 2018-07-01 05:35 | NUR ---
PT SLEPT ON AND OFF AFTER RAKA REDRESSED PREVIOUSLY NOTED. TURNED AND REPOSITIONED PT WOULD ALLOW. INCONTINENT STOOL OVERNIGHT, SKYLAR CARE GIVEN AND ZINC CREAM APPLIED LIBERALLY TO BUTTOCKS. PT REFUSING SOME TURNS, EDUCATION GIVEN.LFA AV FISTULA WITH DRSG CDI. WOUND VAC ON AND OPERATING TO Pj CARRILLO. ACCUCHECKS [id number]. NO LABS THIS MORNING, H&H REDRAWN AT HS. L IJ SL, ABX GIVEN ORDERED. EATING CANDY AND HALF OF BOX LUNCH GIVEN AFTER DIAYLYSIS. ON LOW AIR LOSS MATTRESS. ABLE TO USE CALL LITE AND MAKE NEEDS KNOWN.TELE ST. TEMP 100.6 THIS SHIFT. BED ALARM ON FOR SAFETY.
[2018-07-01 08:00] VITALS: BP 98/57
[2018-07-01 16:00] VITALS: BP 100/59
--- NOTE | 2018-07-01 19:01 | NUR ---
CHANGED RIGHT LOWER EXTREMITY DRESSING THREE TIMES DURING SHIFT TODAY, PATIENT KEEPS REMOVING DRESSING DESPITE MULTIPLE REMINDERS TO LEAVE IN PLACE.
[2018-07-01 20:00] VITALS: BP 104/64
[2018-07-02 05:20] LABS: HEMATOCRIT 21.7 % (42.0-52.0); HEMOGLOBIN 7.3 gm/dL (14.0-18.0); MCH 28.8 pg (26.0-34.0); MCHC 33.8 g/dL (28.0-37.0); MCV 85.4 fL (80.0-100.0); MPV 7.9 fl. (7.2-11.1); RBC 2.54 mil/uL (4.50-6.00); RDW-CV 17.4 % (10.5-14.5); WBC 8.5 thou/uL (4.0-11.0)
[2018-07-02 05:58] LABS: CALCIUM 8.1 mg/dL (8.5-10.1); CREATININE 7.3 mg/dL (0.6-1.3); MAGNESIUM 2.1 mg/dL (1.8-2.4); POTASSIUM 4.6 mmol/L (3.5-5.1)
[2018-07-02 08:56] VITALS: BP 108/74
[2018-07-02 16:00] VITALS: BP 103/62
--- NOTE | 2018-07-02 17:36 | NUR ---
PATIENT DROWSY, ORIENTED X4 THIS SHIFT. Q2H TURNS ATTEMPTED, PATIENT STATED HE JUST SLIDES OFF TURNS IN CURRENT BED R/T SLIPPERY MATTRESS. PATIENT PAIN RATED IN BACK/BOTTOM WHERE SHEERING WOUND IS. PO HYDROCODONE GIVEN X1 THIS SHIFT, PATIENT SLEEPING AFTERWARD. PATIENT CONTINUED TO REQUEST SNACKS AND DRINKS, PILED UP ON BEDSIDE TABLE, BUT DID NOT EAT VERY MUCH. BLOOD SUGARS WNL. VITALS WNL WITH EXCEPTION OF BEING SLIGHTLY TACHY. AFEBRILE. PT AND OT WORKED WITH PATIENT TOGETHER, PATIENT NEEDS TO BE CR LIFT ONLY R/T SHEERING WOUNDS. BARRIER CREAM APPLIED X2 TO BOTTOM WITH ZINC. NO OTHER ACUTE CHANGES THIS SHIFT.
[2018-07-03 00:31] VITALS: BP 132/75
--- NOTE | 2018-07-03 05:53 | NUR ---
PT SLEPT FAIRLY WELL OVERNIGHT. TURNED AND REPOSITIONED Q2 HOURS AND PRN PT WOULD ALLOW AND REQUESTS, EDUCATION GIVEN ON NEED TO TURN COMPLETELY TO SIDE TO STAY OFF OF BOTTOM DUE TO SKIN BREAKDOWN. PT CONTINUE TO REPOSITION HIMSELF OFF OF WEDGES AFTER TURNS. DRSG CHANGED TO RAKA. NOE WITH WOUND VAC ON AND OPERATING. L IJ, SL, ABX GIVEN ORDERED. AM LABS DRAWN. ACCUCHECKS IN 90'S THIS SHIFT, PT EATING SNACK AND CANDY OVERNIGHT. HYDROCODONE GIVEN TWICE FOR CO LEG PAIN WITH GOOD RESULT. INCONTINENT STOOL OVERNIGHT, SKYLAR CARE GIVENA ND BARRIER CREAM APPLIED. ABLE TO USE CALL LITE AND MAKE NEEDS KNOWN. ON LOW AIRLOSS MATTRESS.
--- NOTE | 2018-07-03 06:52 | NUR ---
PT TO DIALYSIS PER BED WITH CHART. DRSG INTACT TO SARA. ONOFRE WITH ABX INFUSING PER PUMP. WOUND VAC ON AND OPERATING TO KUS[facility]. ADVERTISING REP ACCEPTING PT.
[2018-07-03 07:44] LABS: HEMATOCRIT 21.8 % (42.0-52.0); HEMOGLOBIN 7.3 gm/dL (14.0-18.0); MCH 28.5 pg (26.0-34.0); MCHC 33.4 g/dL (28.0-37.0); MCV 85.2 fL (80.0-100.0); MPV 7.7 fl. (7.2-11.1); RBC 2.56 mil/uL (4.50-6.00); RDW-CV 17.3 % (10.5-14.5); WBC 9.9 thou/uL (4.0-11.0)
[2018-07-03 07:56] LABS: ALBUMIN 0.9 g/dL (3.4-5.0); CALCIUM 8.1 mg/dL (8.5-10.1); MAGNESIUM 2.1 mg/dL (1.8-2.4); POTASSIUM 5.2 mmol/L (3.5-5.1); TOTAL BILIRUBIN 0.9 mg/dL (<0.1-1.0)
[2018-07-03 08:11] LABS: CREATININE 8.5 mg/dL (0.6-1.3)
--- NOTE | 2018-07-03 10:28 | NUR ---
WATERSHED MANAGER CONTCTED ADMISSIONS WITH [facility] AND LEFT A MESSAGE TO RETURN CALL TO DISCUSS ABILITY TO ACCEPT THE PATIENT FOR SKILLED. BHARGAVI WITH ADMISSIONS IS IN A MEETING AT THIS TIME, BUT WILL RETURN CALL WHEN MEETING IS OVER. CM WILL REMAIN AVAILABLE TO ASSIST AND FOLLOW NEEDED.
--- NOTE | 2018-07-03 10:34 | NUR ---
PT RETURNED FROM DIALYSIS AT THIS TIME
[2018-07-03 15:40] VITALS: BP 105/65
--- NOTE | 2018-07-03 17:37 | NUR ---
PT PROGRESSING TOWARDS GOALS THIS SHIFT. COMPLETED DIALYSIS. PT REMOVED DRESSING TO RT LE STUMP SEVERAL TIMES THIS SHIFT. PT CONTINUES TO PICK AND REMOVE SKIN TO HANDS AND STUMP. REFUSING TURNS. NO OTHER CONCERNS AT THIS TIME. CLWR. WCTM.
[2018-07-03 19:15] VITALS: BP 120/67
[2018-07-03 19:54] VITALS: BP 120/67
--- NOTE | 2018-07-03 23:02 | NUR ---
INITAL ASSESMENT COMPLETED AT 1914. PT REPORTED PAIN IN RIGHT STUMP. PT GIVEN PRN VICODIN WITH GOOD RESULTS. PT TRANSFERED FROM RECLINER TO BED AT 2229 WITH USE OF LIFT DEVICE. PT INCONTINENT OF LARGE AMOUNT OF BROWN STOOL. PT CLEANED AND BATHED. BARRIER CREAM APPLIED TO BUTT, GROIN AND SCROTUM. T IN BED WITH CALL LIGHT IN REACH.
[2018-07-04 00:30] VITALS: BP 131/70
[2018-07-04 04:00] VITALS: BP 111/64
[2018-07-04 08:15] VITALS: BP 116/71
[2018-07-04 16:40] VITALS: BP 109/62
[2018-07-04 19:26] VITALS: BP 115/74
--- NOTE | 2018-07-04 23:36 | NUR ---
INTIATAL ASSESMENT COMPLETED AT 1999. PT INCONTINENT OF LARGE AMOUNT OF LOOSE BROWN STOOL AT THAT TIME. PT BATHED, COMLETE BED CHANGE DONE. CALL LIGHT IN REACH, PT USING APPROPRIATELY.
[2018-07-05 04:30] VITALS: BP 113/63
[2018-07-05 04:54] LABS: HEMATOCRIT 21.9 % (42.0-52.0); HEMOGLOBIN 7.4 gm/dL (14.0-18.0); MCH 28.6 pg (26.0-34.0); MCHC 33.6 g/dL (28.0-37.0); MCV 85.1 fL (80.0-100.0); MPV 7.7 fl. (7.2-11.1); RBC 2.57 mil/uL (4.50-6.00); RDW-CV 17.5 % (10.5-14.5)
[2018-07-05 05:03] LABS: CALCIUM 8.3 mg/dL (8.5-10.1); CREATININE 8.5 mg/dL (0.6-1.3); MAGNESIUM 2.2 mg/dL (1.8-2.4); POTASSIUM 4.6 mmol/L (3.5-5.1)
--- NOTE | 2018-07-05 05:46 | NUR ---
NO ACUTE CHANGE IN PT'S CONDITION. PT'S VITAL SIGNS WITHIN NORMAL LIMITS. PT TURNED Q 2 HRS TO PREVENT FURTHER BREAKDOWN. PT INCONTINENT OF STOOL AT TIMES. PT CLEANED WITH WOUND CLEANSER SPRAY. BARRIER CREAM APPLIED. PT TO HAVE DIALYSIS TODAY. WILL CONTINUE TO MONITOR
--- NOTE | 2018-07-05 11:07 | PATH ---
[address] [address] PATHOLOGY RPT PROCEDURE Name: RUDOLPH AGUILAR JR Room: [address] IN M.R.#: [id number] Admission: 06/14/18 Date of : 81 Discharge: Report #: [id number] Path Case #: [id number] [facility] Accession Number: [id number] . 01 Material submitted: . AMPUTATED LEFT LEG ABOVE THE KNEE . 01 Clinical history: . Left lower extremity gangrene . 02 Diagnosis: Leg "left leg above knee amputation": - Extensive gangrenous type necrosis with acute inflammatory exudate and fat necrosis extending deeply. - The skin and soft tissue margin enface appear viable with calcification of underlying vessels. - The anterior and posterior tibial artery reveals calcific atherosclerotic narrowing to almost total occlusion. - The popliteal artery also reveals calcific atherosclerotic narrowing. (SHA:pit 07/03/2018) QTP/07/03/2018 . 02 Electronically signed: . Lucas Aguilar MD, Pathologist NPI- [id number] . 01 Gross description: . Received in a red biohazard bag labeled "Linden, Rudolph " and consists of a left above the knee amputation measuring 50.5 cm heel to proximal resection margin and 25.2 cm heel to toe. Protruding from the proximal aspect is the femur (8.0 cm in length and 3.6 cm in width). The proximal bone/skin resection margin appears viable. The skin shows marked necrosis (gangrenous) black-yellow discoloration covering over 50% of the specimen which extends 7.5 cm from the proximal skin resection margin. All 5 toes are present which are mummified. The popliteal artery shows marked stenosis/calcification less than 1.0 cm from the proximal aspect. Further sectioning reveals stenosis of calcifications of the anterior and posterior arterial bundles. Human Resources Safety Manager sections are submitted as follows: . A1: Skin soft tissue margin en face A2: Skin from upper lateral leg A3: Skin just proximal to toes (mummification) A4: Popliteal artery bundle after decalcification A5: Anterior and posterior artery bundles following decalcification (SDY; 06/30/2018) SYU/SYU . [address] [place] [address] PATHOLOGY RPT PROCEDURE Name: LINDENRUDOLPH JR Room: [address] IN [facility].#: [id number] Admission: 06/14/18 Date of : 81 Discharge: Report #: [id number] Path Case #: [id number] Pathologist provided ICD-10: I70.262 . 02 CPT . 781587, 140258 Specimen Comment: A courtesy copy of this report has been sent to Specimen Comment: [phone], . Specimen Comment: Report sent to and Specimen Comment: A duplicate report has been generated due to demographic updates. Performed at: [address] [facility], [place], [place] [id number] MD Aaron Lanza MD Phone: [phone] Performed at: [facility] [address], [place], [place] [id number] MD Pranav Aguilar MD Phone: [phone]
--- NOTE | 2018-07-05 11:42 | NUR ---
CALLED [facility] TO INQUIRE IF A DECISION HAD BEEN MADE REGARDING ACCEPTANCE OF PT.TO THEIR FACILITY. SHE SAID THEIR D.O.N SAID THIS DECISION HAD TO GO THROUGH [facility]. [facility] SAID SHE WOULD TRY TO HAVE AN ANSWER BY THIS AFTERNOON. MESSAGE LEFT FOR [facility] [phone] [id number] TO SEE IF THEY NEEDED MORE INFORMATION ON PT.
[2018-07-05 12:05] LABS: HEPATITIS B SURFACE AG Negative (Negative)
[2018-07-05 13:57] LABS: HEMATOCRIT 21.9 % (42.0-52.0); HEMOGLOBIN 7.2 gm/dL (14.0-18.0)
[2018-07-05 14:08] LABS: APTT 31.4 Seconds (25.0-31.3); INR 1.3; PROTIME 13.2 Seconds (9.20-11.50)
[2018-07-05 15:56] VITALS: BP 126/76
--- NOTE | 2018-07-05 17:09 | NUR ---
ASSESSMENT COMPLETE. PT ALERT AND ORIENTED X4. PT HAD DIALYSIS THIS AM AND THEY PULLED OFF 3LITERS. VSS, AFEBRILE. PT IS ON ROOM AIR WITH ADEQAUTE SATS. PT INCONT OF STOOL AT TIMES. DRESSING TO LEFT IJ CHANGED TODAY. PT IS Q2 TURN. DRESSINGS CHANGED ORDERED. PREVENA DISCONTINUED BY DR ORTIZ TO LEFT AKA. WHEN PT CAME BACK FROM DIALYSIS LARGE AMOUNT OF BLOOD NOTED ON PAD AND BEDDING. PRESSURE APPLIED TO RIGHT STUMP UNTIL DR ORTIZ COULD COME OBSERVE. DR ORTIZ STATES IT WAS PROBABLY A HEMATOMA THAT WAS NOTED WHEN THEY REMOVED THE WOUND VAC LAST WEEK. NEW DRESSING APPLIED TO RIGHT STUMP. STAT H&H SHOWED HGB OF 7.2. BLOOD PRESSURE STABLE. PAIN MEDICATION GIVEN. PT CURRENTLY SLEEPING. SEE ASSESSMENT AND VITALS FOR OTHER DETAILS. CALL LIGHT WITHIN REACH, WILL CONTINUE PLAN OF CARE
--- NOTE | 2018-07-05 17:53 | NUR ---
PT.ALERT BUT NOT TALKATIVE. FAMILY HERE,INCLUDING MOTHER. CM HAD RECEIVED CALL FROM [facility] AND THEIR FACILITY CANNOT ACCEPT PT. THEY DO NOT FEEL THEY CAN MEET PT'S NEEDS. INFORMED THEM OF THIS. CM FOUND LTAC FACILITY CALLED [facility], FAMILY HAD ASKED IF THERE WERE ANY FACILITYS [place] INSTEAD OF THEM HAVING TO DRIVE ALL THE WAY TO [facility] FOR SNF. GAVE THEM BROCHURE. THEY SAID THEY WERE NOT SURE IF THIS WOUDL WORK IT MIGHT BE TOO FAR AWAY. CM HAD FAXED [facility] ADMISSIONS SO SEE IF PT.WOULD QUALIFY FOR LTAC OR REHAB UNIT [phone]. EXPLAINED THAT IF THERE ARE ONLY 1-2 FACILITIES THAT WILL ACCEPT PT.THEY MAY NEED TO CHOOSE ONE EVEN IF NOT TOTALLY CONVIENENT FOR THEM.
[2018-07-05 23:32] VITALS: BP 110/64
--- NOTE | 2018-07-06 05:33 | NUR ---
PT SLEPT OFF AND ON OVERNIGHT. TURNED AND REPOSITIONED Q2 HOURS AND PRN HE WOULD ALLOW AND REQUESTED. REMAINS ON LOW AIR LOSS MATTRESS. SARA MCGUIRE CHANGED TWICE THIS SHIFT, PT PICKS AND PULL AT DRSG, SCRATCHES AT INCISION. DIANE WITH SMALL AREAS OF DEHISCENCE, SEROSANG DRAINAGE PRESENT. BUTTOCKS, SACRUM, SKYLAR AREA WITH DENUDED AREAS, SKYLAR CARE GIVEN WITH 2 LOOSE BMS, BARRIER CREAM APPLIED ZINC OINTMENT NOT AVAILABLE. Pj LOCKHART SL. MEPILEX DRSG TO KUSUM. NO LABS THIS MORNING. ACCUCHECK [id number] WNL.LFA AV FISTULA. STUMP SHRINKERS TO BE DELIVERED TODAY FOR PT. ABLE TO USE CALL LITE AND MAKE NEEDS KNOWN. PO PAIN MED GIVEN 3 TIMES OVERNIGHT.
--- NOTE | 2018-07-06 10:00 | NUR ---
ANDREA/ ANTHONY FROM [facility] HERE TO VISIT WITH PT. SHE LEFT BROCHURE FOR HIM. HE SIGNED AGREEMENT THAT IF HE DECIDED TO COME THERE THEY COULD PROCEED, SINCE [facility] IS 2 HRS.AWAY. IT DOES NOT OBLIGATE HIM TO GO THERE. SHE SAID THEY CAN ACCEPT HIM IF HE IS AGREEABLE. PT.SEEMS AGREEABLE BUT SAID HE WOULD CALL HIS FAMILY. MOTHER CALLED CM. SHE SAID SHE DID NOT WANT HIM GOING ALL THE WAY TO [place] NO ONE WOULD BE ABLE TO SEE HIM EXCEPT ON THE WEEKENDS. TOLD HER ABOUT 2 OTHER LTACS[facility]. SHE SAID CM COULD SEND REFERRALS THERE TO BOTH. [facility] WILL FAX REFERRALS.
--- NOTE | 2018-07-06 11:14 | NUR ---
WOUND CARE NOTE: REASSESSMENT OF COCCYX/LEFT BUTTOCK WOUNDS. COCCYX WOUND APPEARS TO BE IMPROVING PINK, NEW EPITHELIUM TO SKYLAR-WOUND. WOUND BED MOIST, PINK TO APPROXIMATELY 30% OF WOUND BED WITH 70% COVERED IN A TYLER, DRY ESCHAR. ALSO HAS MULTIPLE PINK, MOIST ULCERATIONS EXTENDING DOWN LEFT BUTTOCK TO SKYLAR-RECTAL AREA, BELIEVE THESE MAY BE DUE TO MOISTURE/PRESSURE TOO. AFTER CLEANSING, APPLIED Z-GUARD OINTMENT TO AREA. UPON ENTERING ROOM, LOW AIR LOSS MATTRESS WITH ERROR CODE. TURNED BED OFF AND BACK ON, WHICH SEEMED TO RESOLVE ISSUE. PATIENT'S BED UNPLUGGED, PLUGGED BACK IN. DRESSING TO RIGHT AKA OFF. CLEANSED WOUND. MULTIPLE AREAS OF NECROSIS TO LATERAL AND MEDIAL AND POSTERIOR ASPECTS OF INCISION LINE. APPLIED XEROFORM GAUZE. INCISION LINE WITH DIANE, NOT WELL APPROXIMATED AT MEDIAL AND LATERAL ENDS OF INCISION LINE. MOIST RED, DRAINING SANGUINEOUS DRAINAGE. CLEANSED ALL AND APPLIED AQUACEL AG THEN ABD. SECURED WITH KERLIX THEN COBAN. HOPING SLIGHT COMPRESSION WITH COBAN WILL KEEP DRESSING IN PLACE BETTER THAN THE MACHO WRAP. PATIENT IS ADAMENT THAT HE IS NOT REMOVING DRESSING THAT IT KEEPS FALLING OFF. HOPEFULLY THE COBAN WILL HELP KEEP EVERYTHING IN PLACE. DRESSING WAS IN ONE PIECE, BELIEVE IT CAME OFF AND PATIENT DID NOT REMOVE HIMSELF. DRESSING TO LEFT AKA WAS SATURATED WITH SEROSANGUINEOUS DRAINAGE AT THE LATERAL END OF THE INCISION LINE. REMOVED DRESSING. CLEANSED WELL WITH WOUND CLEANSER, PATTED DRY. INCISION WELL APPROXIMATED WITH DIANE IN PLACE. MACERATION NOTED TO THE DISTAL/CENTER MOST END OF INCISION LINE, MAY HAVE HAD BLISTERING AT ONE TIME. AT THE INCISION LINE IN THE SAME AREA, THERE IS PARTIAL THICKNESS BREAKDOWN, BELIEVE FROM MOISTURE. OVERALL INCISION LINE LOOKS LIKE IT IS HEALING VERY WELL. EDUCATED PATIENT ON IMPORTANCE OF NOT TOUCHING WOUNDS/INCISIONS, COMMUNICATED UNDERSTANDING, BUT WILL NEED REINFORCEMENT PATIENT KEPT ATTEMPTING TO SCRATCH/PICK AT DRY SKIN DURING DRESSING CHANGE. REEDUCATED PATIENT MULTIPLE TIMES DURING ASSESSMENT. EDUCATED PATIENT ON KEEPING OFF WOUNDS, PATIENT ALLOWED US TO KEEP HIM IN A SUPINE POSITION WITH PILLOWS REPOSITIONING HIM TO THE RIGHT SIDE. RECOMMEND TURN Q2 HOURS-KEEP OFF WOUND. ATTEMPTED TO USE WEDGES, BUT PATIENT REFUSED. USED PILLOWS AND PATIENT STILL MOVED OFF OF THESE. CONTINUE Z-GUARD BARRIER OINTMENT TO COCCYX/BUTTOCK WOUNDS ENCOURAGE GOOD NUTRTION/HYDRATION CONTINUE WITH BRENDA MATTRESS
[2018-07-06 11:38] VITALS: BP 107/67
--- NOTE | 2018-07-06 14:51 | NUR ---
SALES PROMOTION REPRESENTATIVE ATEMPTED TO SPEAK TO THE PATIENT TO DISCUSS DISCHARGE PLANNING NEEDS AND LTAC AT [facility] AT D/C, AND HIS MOTHER'S CONCERNS WITH NO BEING ABLE TO GET TO [place] TO SEE HIM. PATIENT INITIALLY VOICED UNDERSTANDING, BUT THEN KEPT DRIFTING OFF TO SLEEP AND UNABLE TO COMPLETE THE CONVERSATION. CM WILL F/U WITH THE PATIENT AT ANOTHER TIME TO DISUCSS. CM WILL REMAIN AVIALABLE TO ASSIST AND FOLLOW NEEDED.
[2018-07-06 16:00] VITALS: BP 147/67
--- NOTE | 2018-07-06 16:45 | NUR ---
FAXED REFERRAL TO [facility] AND [facility]. BOTH [facility] HAVE CONFIRMED RECEIVING THEM. THEY WILL REVIEW AND COME TO VISIT PT.IN AM .
--- NOTE | 2018-07-06 18:21 | NUR ---
PATIENT IS ALERT AND ORIENTED TODAY, VITAL SIGNS STABLE ON ROOM AIR. STUMP SHRINKERS PLACED THIS AFTERNOON. WOUNDS ON BUTTOCKS AND LEGS ARE NOT DRAINING MUCH TODAY. HAS BEEN CONTINENT TODAY. SOME COMPLAINTS OF PAIN AFTER MOVING THAT IS CONTROLLED WITH ORAL PAIN MEDCATIONS. PATIENT IS NOT EATIN MEALS BUT IS EATING A LOT OF CANDY. EDUCATED ON NUTRITION OF PROTIEN TO HELP WITN WOUND HEALING. CALL LIGHT IS IN REACH, BED ALARM IS ON. PLACE WAS WILLING TO ACCEPT PATIENT TODAY BUT MOTHER DID NOT WANT THE FACILITY. WILL COTINUE TO MONITOR,
[2018-07-07] VITALS (12 sets, daily range): BP systolic 96–120; BP diastolic 47–74
--- NOTE | 2018-07-07 05:40 | NUR ---
PT AWAKE UNTIL ABOUT 0400. UP IN CHAIR FOR A COUPLE OF HOURS AT START OF SHIFT. PT TURNED AND REPOSITIONED Q2 HOURS AND PRN FOR SKIN CARE AND COMFORT. SKYLAR CARE GIVEN AND ZINC CREAM APPLIED BUT BUTTOCKS NEEDED. DRSG CDI TO L AKA, DRSG BECAME LOOSE AND SMALL AMOUNT BLOODY DRAINAGE-REDRESSED PER ORDERS. PT STUMP VACUUM EVAPORATION OPERATOR SARA BECAME SOILED WITH INCONTINENT BM OVERNIGHT. PO PAIN MED GIVEN ORDERED WITH FAIR RELIEF. L IJ SL, AM LABS TO BE DRAWN. ACCUCHECK WNL. DISCHARGE PLANNING FOR LTAC SOON. ABLE TO USE CALL LITE AND MAKE NEEDS KNOWN. LOW AIR LOSS MATRESS.
[2018-07-07 06:42] LABS: MCH 27.8 pg (26.0-34.0); MCHC 32.7 g/dL (28.0-37.0); MPV 7.4 fl. (7.2-11.1); RBC 2.01 mil/uL (4.50-6.00); RDW-CV 17.6 % (10.5-14.5); WBC 14.3 thou/uL (4.0-11.0)
[2018-07-07 06:44] LABS: HEMATOCRIT 17.1 % (42.0-52.0); HEMOGLOBIN 5.6 gm/dL (14.0-18.0)
[2018-07-07 06:51] LABS: CALCIUM 8.1 mg/dL (8.5-10.1); CREATININE 8.1 mg/dL (0.6-1.3); MAGNESIUM 2.2 mg/dL (1.8-2.4); POTASSIUM 4.8 mmol/L (3.5-5.1)
[2018-07-07 07:11] LABS: MCH 27.7 pg (26.0-34.0); MCHC 32.5 g/dL (28.0-37.0); MPV 7.6 fl. (7.2-11.1); RBC 1.94 mil/uL (4.50-6.00); RDW-CV 17.4 % (10.5-14.5); WBC 13.9 thou/uL (4.0-11.0)
[2018-07-07 07:14] LABS: HEMOGLOBIN 5.4 gm/dL (14.0-18.0)
[2018-07-07 07:15] LABS: HEMATOCRIT 16.5 % (42.0-52.0)
--- NOTE | 2018-07-07 12:21 | NUR ---
[facility] AND [facility] BOTH CAME OUT THIS AM TO SEE PT. BOTH HAVE CALLED AND SAID THEY CAN ACCEPT PT.TODAY TO THEIR LTAC. [facility] CAME YESTERDAY AND SAID THEY COULD ACCEPT PT. MOTHER THOUGHT [facility] WHERE [facility] WAS TOO FAR AWY. LEFT FOR PT.'S MOM ON CELL. PT.HAS BEEN IN DIALYSIS ALL MORNING AND SLEEPING. [facility] SO COULDN'T DISCUSS WITH HIM. NOTIFIED THAT WE HAVE 3 ACCEPTING FACILITIES. HE ORDERED [facility].
[2018-07-07] MEDS ORDERED: CARVEDILOL3.125 MG PO (12:46)
[2018-07-07] MEDS ORDERED: ASPIR 8181 MG PO (12:48)
[2018-07-07] MEDS ORDERED: NORCO 5-325 TA1 EACH PO (12:49)
[2018-07-07] MEDS ORDERED: LIPITOR 20 MG T20 M1 PO (12:50)
[2018-07-07] MEDS ORDERED: APAP650 PO (12:55)
--- NOTE | 2018-07-07 13:15 | NUR ---
PT.'S MOTHERS CORRECT PHONE NUMBER IS [phone]. CALLED AND SPOKE WITH HER. SHE THINKS [facility] WOULD BE GOOD FOR SON AND IT IS THE CLOSEST. TOLD HER HGB WAS LOW SO HE WILL NOT BE GOING TODAY BUT WILL GO TOMORROW IF STABLE. GAVE HER ADDRESS AND PHONE NUMBER OF [facility]. SPOKE WITH PT. HE WAS AGREEABLE TO GOING TO [facility]. TOLD HIM IT WOULD BE TOMORROW IF HE WAS STABLE. [facility] NOTIFIED [facility] THAT PT.CANNOT BE DISCHARGED TODAY. SHE SAID THEY CAN ACCEPT HIM TOMORROW IF HE IS READY FOR DC. CERTIFIED MASSAGE THERAPIST ADMISSIONS IS JAM [phone] AND [phone]. AMBULANCE FORM AND TRANSFER FORM IN FRONT OF CHART. [facility] ALSO NOTIFIED [facility] AND [facility] THAT PT.CHOSE ANOTHER FACILITY.
[2018-07-07 13:42] LABS: HEMOGLOBIN 6.6 gm/dL (14.0-18.0)
--- NOTE | 2018-07-07 16:59 | NUR ---
ASSESSMENT COMPLETE. PT ALERT AND ORIENTED X4 TODAY. PT HAD DIALYSIS THIS MORNING. PT HGB CRITICAL THIS MORNING, TRANSFUSION GIVEN IN DIALYSIS. REDRAW SHOWED HGB AT 6.6, SECOND TRANSFUSION INFUSING NOW. PT HAS LEFT IJ, TRIPLE LUMEN. DRESSINGS TO BILAT AKA'S DONE. WOUNDS TO SACRUM CLEANED WITH WOUND CLEANSER AND ZINC CREAM APPLIED. PT IS Q2 TURN. PT IS ON ROOM AIR. LOW GRADE TEMP WITH TRANSFUSION, TYLENOL GIVEN. SEE ASSESSMENT AND VITALS FOR OTHER DETAILS. CALL LIGHT WITHIN REACH, WILL CONTINUE PLAN OF CARE
[2018-07-07 19:03] LABS: HEMATOCRIT 21.7 % (42.0-52.0); HEMOGLOBIN 7.1 gm/dL (14.0-18.0)
--- NOTE | 2018-07-08 04:49 | NUR ---
PATIENT IN RECLINER DURING THIS SHIFT. PT REFUSING TO SLEEP IN BED. PT DID NOT WANT WEDGE OR PILLOW PLACED UNDER BUTTOCKS BUT WAS ABLE TO REPOSITION HIMSELF IN THE CHAIR. DSG ON RT STUMP OFF AND INCISION CLEANED AND REDRESSED. PT REQUESTED PAIN MEDICATION X1 AND RECEIVED ONE HYDROCODONE. PT BACK TO SLEEP AFTERWARDS. PT WITH TRIPLE LUMAN LT IJ; ABLE TO DRAW ONLY FROM THE BROWN PORT BUT CAN FLUSH ALL THREE. PT WITH DIALYSIS CATH IN LT ARM, EDEMA NOTED. PT DENIES NEEDS AT THIS TIME. FREQUENTLY USED ITEMS AND CALL LIGHT WITHIN REACH. WILL CONTINUE TO MONITOR.
[2018-07-08 07:38] VITALS: BP 116/51
--- NOTE | 2018-07-08 11:48 | NUR ---
Received d/c orders for pt to transfer to [facility] today. Spoke with Ivanna, admissions liaison and faxed orders. Chart copied. Faxed ambulance transfer form to [facility] and called to schedule ambulance transport at 1330. No other needs identified. [facility] report [phone]; fax [phone] [facility] ambulance [phone]; fax [phone]
[2018-07-08 14:33] VITALS: BP 112/69
--- NOTE | 2018-07-08 15:44 | NUR ---
ASSESSMENT COMPLETE. PT ALERT AND ORIENTED, SLEEPING THIS AM. PT GIVEN PRN PAIN MEDICATION. PT ON ROOM AIR, VITALS STABLE. DRESSINGS TO BILAT AKA'S CHANGED AND SACRAL/THIGH WOUNDS CLEANED AND CREAM APPLIED. PT DISCHARGED TO [facility] TODAY AT 1410 VIA AMBULANCE. LEFT IJ TAKEN OUT WITHOUT ANY DIFFICULTY, TIP INTACT, PRESSURE APPLIED FOR 5 MIN. WHEN PT LEFT DRESSING DRY AND INTACT. REPORT GIVEN TO NURSE OVER PHONE AT 1420. ALL BELONGINGS SENT WITH PT. SEE ASSESSMENT AND VITALS FOR OTHER DETAILS.
== END 2018-07-08 14:10 | DRG 853 ==
LOC: M.ERS 19:26 → M.TBA-ER 21:39 → M.ICU 21:39 → M.3W 06-18 14:44
PROVIDERS: Emergency Medicine Emergency Medical Services; Family Medicine; Internal Medicine; Internal Medicine Nephrology; Internal Medicine Pulmonary Disease; Student in an Organized Health Care Education/Training Program; ADMIT Internal Medicine
PROC: 5A09357 Assistance with Respiratory Ventilation, Less than 24 Consecutive Hours, Continuous Positive Airway Pressure (ICD-10-PCS; principal; 2018-06-15)
PROC: 05HY33Z Insertion of Infusion Device into Upper Vein, Percutaneous Approach (ICD-10-PCS; 2018-06-20)
PROC: 5A1D70Z Performance of Urinary Filtration, Intermittent, Less than 6 Hours Per Day (ICD-10-PCS; 2018-06-21)
PROC: 0Y6C0Z1 Detachment at Right Upper Leg, High, Open Approach (ICD-10-PCS; 2018-06-22)
PROC: 30233N1 Transfusion of Nonautologous Red Blood Cells into Peripheral Vein, Percutaneous Approach (ICD-10-PCS; 2018-06-23)
PROC: 5A1D70Z Performance of Urinary Filtration, Intermittent, Less than 6 Hours Per Day (ICD-10-PCS; 2018-06-26)
PROC: 5A1D70Z Performance of Urinary Filtration, Intermittent, Less than 6 Hours Per Day (ICD-10-PCS; 2018-06-28)
PROC: 0Y6D0Z1 Detachment at Left Upper Leg, High, Open Approach (ICD-10-PCS; 2018-06-28)
PROC: 5A1D70Z Performance of Urinary Filtration, Intermittent, Less than 6 Hours Per Day (ICD-10-PCS; 2018-07-03)
PROC: 5A1D70Z Performance of Urinary Filtration, Intermittent, Less than 6 Hours Per Day (ICD-10-PCS; 2018-07-05)
DX: A41.9 Sepsis, unspecified organism (principal); N18.6 End stage renal disease; R65.21 Severe sepsis with septic shock; G92 Toxic encephalopathy; I21.4 Non-ST elevation (NSTEMI) myocardial infarction; J96.00 Acute respiratory failure, unspecified whether with hypoxia or hypercapnia; I50.32 Chronic diastolic (congestive) heart failure; I96 Gangrene, not elsewhere classified; J98.11 Atelectasis; I13.2 Hypertensive heart and chronic kidney disease with heart failure and with stage 5 chronic kidney disease, or end stage renal disease; E87.1 Hypo-osmolality and hyponatremia; E16.2 Hypoglycemia, unspecified; E03.9 Hypothyroidism, unspecified; E87.70 Fluid overload, unspecified; I95.9 Hypotension, unspecified; D63.8 Anemia in other chronic diseases classified elsewhere; F17.210 Nicotine dependence, cigarettes, uncomplicated; G47.33 Obstructive sleep apnea (adult) (pediatric); Y83.5 Amputation of limb(s) as the cause of abnormal reaction of the patient, or of later complication, without mention of misadventure at the time of the procedure; K76.0 Fatty (change of) liver, not elsewhere classified; L89.159 Pressure ulcer of sacral region, unspecified stage; Z82.49 Family history of ischemic heart disease and other diseases of the circulatory system; Z91.14 Patient's other noncompliance with medication regimen; Z79.82 Long term (current) use of aspirin; Z79.899 Other long term (current) drug therapy; Z95.5 Presence of coronary angioplasty implant and graft